=== PATIENT | female | born 1950 | race Caucasian/White ===

== ENCOUNTER → 2017-12-08 | Outpatient (CLI) | payer MEDICARE, OTHER | END | disposition home or self-care (01) | LOC: LAB.REF 19:11 | PROVIDERS: ATTEND Nurse Practitioner Family | DX: I99.8 Other disorder of circulatory system (principal) ==

== ENCOUNTER 2018-11-19 12:48 | Inpatient (IN) | payer MEDICARE, OTHER ==
[2018-11-19] MEDS ORDERED: IPRATROPIUM/ALBUTEROL 3 ML VIAL NEB ONE (13:24)
[2018-11-19] MEDS ORDERED: methylPREDNISolone SODIUM SUC 125 MG/2 ML VIAL IV ONE (13:26)
--- NOTE | 2018-11-19 13:29 | ED.PDOC ---
History of Present Illness - General Chief Complaint: Respiratory Problem Stated Complaint: sob, cough, fever Time Seen by Provider: 11/19/18 12:55 Source: patient Exam Limitations: no limitations - History of Present Illness Initial Comments: 68 yo F with COPD, uses CPAP at night, and chronic atrial fibrillation with a pacemaker who presents with dyspnea for three days. She has had an increasingly productive cough of brown/green sputum. She is unsure if she has had a fever at home. Her has had a recent URI. No other complaints. Denies chest pain. Timing/Duration: other - 3 days Severity: moderate Improving Factors: rest Worsening Factors: movement Associated Symptoms: other - as in HPI Allergies/Adverse Reactions: Allergies Codeine Allergy (Verified 11/19/18 13:21) Other Review of Systems - Review of Systems Constitutional: States: no symptoms reported EENTM: States: no symptoms reported Respiratory: States: see HPI Cardiology: States: see HPI Gastrointestinal/Abdominal: States: no symptoms reported Genitourinary: States: no symptoms reported Musculoskeletal: States: no symptoms reported Skin: States: no symptoms reported Neurological: States: no symptoms reported Endocrine: States: no symptoms reported Hematologic/Lymphatic: States: no symptoms reported Past Medical History (General) - Patient Medical History Hx of COPD: Yes Hx Cardiac Disorders: Yes Hx Pacemaker: Yes Surgical History: cholecystectomy, other - Vaccination History Hx Influenza Vaccination: No Hx Pneumococcal Vaccination: No - Social History Hx Tobacco Use: No Hx Alcohol Use: No Hx Substance Use: No Hx Substance Use Treatment: No Hx Depression: No Family Medical History - Family History Mother Family History: Unknown Physical Exam - Physical Exam General Appearance: Alert Eye Exam: bilateral normal Ears, Nose, Throat: normal ENT inspection Neck: non-tender, full range of motion, supple Respiratory: other - scattered inspiratory and expiratory wheezes in all lung mathew. No rales nor rhonchi. 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, no motor/sensory deficits, alert, normal mood/affect, oriented x 3 Skin Exam: normal color Lymphatic: no adenopathy Progress - Progress Progress: 11/19/18 17:11 Laboratory Tests 11/19/18 11/19/18 11/19/18 13:34 13:55 13:55 WBC 7.4 RBC 3.56 L Hgb 11.1 L Hct 34.1 L MCV 96.0 MCH 31.1 H MCHC 32.5 L RDW 13.6 Plt Count 179 MPV 9.0 Absolute Neuts (auto) 6.10 Absolute Lymphs (auto) 0.50 L Absolute Monos (auto) 0.70 Absolute Eos (auto) 0.10 Absolute Basos (auto) 0.00 Neutrophils % 81.6 H Lymphocytes % 6.8 L Monocytes % 9.8 H Eosinophils % 1.4 Basophils % 0.4 PT INR PTT (SP) D-Dimer, Quantitative Sodium 138 Potassium 4.3 Chloride 104 Carbon Dioxide 26 Anion Gap 12.3 BUN 31 H Creatinine 1.34 H BUN/Creatinine Ratio 23.1 H Random Glucose 99 Serum Osmolality 282.3 Calcium 9.2 Total Bilirubin 0.9 AST 26 ALT 12 Alkaline Phosphatase 98 Creatine Kinase CK-MB (CK-2) CK-MB (CK-2) % Troponin I B-Natriuretic Peptide Serum Total Protein 7.4 Albumin 3.5 Globulin 3.9 H Albumin/Globulin Ratio 0.9 L Group A Strep Rapid Negative 11/19/18 11/19/18 11/19/18 13:55 13:55 13:55 WBC RBC Hgb Hct MCV MCH MCHC RDW Plt Count MPV Absolute Neuts (auto) Absolute Lymphs (auto) Absolute Monos (auto) Absolute Eos (auto) Absolute Basos (auto) Neutrophils % Lymphocytes % Monocytes % Eosinophils % Basophils % PT 17.7 H INR 1.78 H PTT (SP) 43.5 H D-Dimer, Quantitative 0.25 Sodium Potassium Chloride Carbon Dioxide Anion Gap BUN Creatinine BUN/Creatinine Ratio Random Glucose Serum Osmolality Calcium Total Bilirubin AST ALT Alkaline Phosphatase Creatine Kinase 196 H CK-MB (CK-2) 3.0 CK-MB (CK-2) % Not Reportable Troponin I < 0.02 B-Natriuretic Peptide 517.0 H* Serum Total Protein Albumin Globulin Albumin/Globulin Ratio Group A Strep Rapid BNP 517. Patient was given Solumedrol 125 mg IV x one, Lasix 40 mg IV x one, and duonebs x one. She said that she felt like she was breathing better. Her EKG showed a rate of 94 but otherwise was not useful because of her pacemaker. Negative troponins. She was admitted for observation for CHF and COPD exac. 11/19/18 17:13 Departure - Departure Clinical Impression: Congestive heart failure, COPD (chronic obstructive pulmonary disease) Disposition: Admit Patient Condition: Fair Departure Forms: ED Discharge - Pt. Copy, Patient Portal Self Enrollment Diet: other - as per hospitalist Activity: increase activity as tolerated Referrals: Clayton Walter MD [Primary Care Provider] - 1-2 Weeks
--- NOTE | 2018-11-19 13:59 | RAD ---
EXAM DESCRIPTION: Chest,1 View CLINICAL HISTORY: dyspnea COMPARISON: None. IMPRESSION: Single AP portable upright view of the chest shows enlargement of the cardiac silhouette without pulmonary vascular congestion. Dual-lead left subclavian transvenous cardiac pacemaker is seen with 2 ventricular type leads. Lungs are hypoaerated without acute infiltrate or consolidation. No pleural effusion or pneumothorax. Electronically signed by: Shahzad Palomino MD 11/19/2018 1:58 PM GROUP [employer] MANAGER
[2018-11-19] MEDS ORDERED: FUROSEMIDE INJ 40 MG/4 ML VIAL IV ONE (14:33)
[2018-11-19] MEDS ORDERED: NITROGLYCERIN 2% 1 GM UD TOP ONE (14:33)
[2018-11-19] MEDS ORDERED: ALPRAZolam 0.5 MG TAB ONE (16:43)
[2018-11-19] MEDS ORDERED: AZTREONAM 1 GM VIAL ONE (16:52)
--- NOTE | 2018-11-19 17:51 | HP ---
SUPERVISING PHYSICIAN: Krystal Reed MD CHIEF COMPLAINT: Shortness of breath, cough, fever. HISTORY OF PRESENT ILLNESS: Ms. Lakhani is a 68-year-old, female patient with a history of chronic obstructive pulmonary disease and uses CPAP at night with chronic atrial fibrillation with pacemaker. She presented today to the Emergency Room complaining of dyspnea that had been worsening over the last three days with increasing, productive, purulent cough. Her had noted that he had similar symptoms in the last several days, but Ms. Lakhani's symptoms had worsened to where she was severely short of breath and presented to the Emergency Department. She denied any chest pains and was unsure if she had any fevers at home. Vital signs at the time of admission to the Emergency Room showed that she was febrile with a temperature of 100.7, pulse 90, blood pressure 161/97, saturation 96% on room air. She had been seen in the [facility] emergency clinic today and was actually sent to the Emergency Room for further evaluation due to the fact that she had shown some desaturations on room air. Laboratory studies showed white count 7,400 with a mild left shift, hemoglobin 11.1, hematocrit 34.1. She is on chronic Coumadin therapy, but has been without any Coumadin for the last three days and today her INR was 1.78 with D-dimer 0.25. Chemistries showed normal electrolytes, BUN elevated at 31, creatinine 1.34, BNP showed elevation to 517, but troponin was less than 0.02. Liver function tests were all within normal limits. She had a rapid strep screen that was negative as well as flu A and B by PCR that were both negative. Chest x-ray in the Emergency Room, singe-view portable chest, per radiologic interpretation showed lungs hyper-aerated without any acute infiltrates or consolidations, no pleural effusion or pneumothorax noted. The patient was showing some desaturations again on room air and given that she was having obvious exacerbation of chronic obstructive pulmonary disease with concerns for developing community acquired pneumonia, the Emergency Room physician, Dr. Krishnan, requested the patient be admitted for further treatment and evaluation. The patient is admitted in stable condition. PAST MEDICAL HISTORY: 1. Hypertension. 2. Pulmonary hypertension, followed by Dr. Rodriguez. 3. Chronic atrial fibrillation with pacemaker implantation on chronic Coumadin therapy, but off Coumadin for the last three days due to noncompliance with treatment. 4. History of tricuspid regurgitation. 5. Chronic dyspnea, but no echocardiogram available at time of admission. 6. History of venous insufficiency to bilateral lower extremities with stasis ulcers. PAST SURGICAL HISTORY: 1. Cholecystectomy. 2. Compression fractures of C1-C2, C2-C3, C3-C4 after she fell in 2016 requiring surgical stabilization. 3. Bilateral knee replacements. 4. Gastric bypass. 5. Hernia repair. 6. Appendectomy. 7. Status post elbow fracture with open reduction and internal fixation. 8. section x1. HOME MEDICATIONS: 1. Losartan 100 mg daily. 2. Tylenol 1000 mg t.i.d. 3. Benadryl 50 mg at bedtime. 4. Zyrtec 10 mg daily. 5. Carvedilol 25 mg b.i.d. 6. Biotin 1 tablet daily. 7. Trazodone 50 mg at bedtime. 8. Lasix 40 mg at noon. 9. Lasix 80 mg at 7 o'clock. 10. Spironolactone 25 mg daily. 11. Duloxetine 60 mg daily. 12. Tramadol 100 mg at bedtime. 13. Warfarin 5 mg at bedtime. 14. Warfarin 7.5 mg at bedtime on Tuesdays and . 15. Protonix 40 mg daily. 16. Breo Ellipta 200/25 mcg 1 inhaled daily. ALLERGIES: CODEINE. FAMILY HISTORY: Father at age 51 with cardiovascular disease. Mother at age 83 with history of heart failure. She has three siblings, all alive and all have history of hypertension, atrial fibrillation, strokes, renal problems and one brother had brain aneurysm and coronary artery bypass graft. She gross two children. One daughter has atrial fibrillation. SOCIAL HISTORY: The patient recently moved back to [place], [place]. She is . She is a retired schoolteacher. She has never smoked and rarely drinks alcohol. REVIEW OF SYSTEMS: CONSTITUTIONAL: Denies any unintentional weight loss, but positive for general malaise, subjective fevers. HEENT: Negative for earaches, sore throat. Positive for nasal congestion RESPIRATORY: As noted in history of present illness, positive for worsening shortness of breath, exertional dyspnea and productive cough. CARDIOVASCULAR: Positive for exertional dyspnea. Negative for chest pain or syncopal episodes. GASTROINTESTINAL: Negative for nausea, vomiting, diarrhea or constipation. GENITOURINARY: Denies dysuria, hematuria, polyuria or other urinary symptoms. MUSCULOSKELETAL: Negative for general arthralgias. NEUROLOGIC: Negative for seizures, ataxia, syncopal episodes, vision changes, headaches. HEMATOLOGICAL: Denies easy bruising, unexplained bleeding. She is on chronic Coumadin therapy with warfarin. PHYSICAL EXAMINATION: VITAL SIGNS: Temperature 100.7. Pulse 90. Blood pressure 161/97. Respirations 20. Saturation 96% on room air. Admission weight 107.3 kg. GENERAL: The patient appears frail, tired, but in no apparent acute distress. She is alert. HEENT: Tympanic membranes clear bilaterally. Oropharynx is pink, moist without any lesions. NECK: Supple, nontender with full range of motion. No jugular venous distention noted. RESPIRATORY: Lung sounds notable for some mild inspiration and expiratory wheezing and some coarseness with rhonchi heard throughout all lung field, more so on the right than the left. CARDIOVASCULAR: Slightly irregular rate and rhythm without any appreciable murmurs, gallops, or rubs. ABDOMEN: Soft, nontender. Positive bowel sounds. EXTREMITIES: There is no cyanosis, clubbing or edema. NEUROLOGIC: Cranial nerves II-XII are grossly intact. Facial features are symmetrical. Extraocular movements are within normal limits. There is no nystagmus noted. SKIN: [place], warm and dry without any lesions or rashes. LYMPHATIC: Without any obvious lymphadenopathies. LABORATORY: CBC showed white count 7,400, hemoglobin 11.1, hematocrit 34.1, platelet count 179,000. Differential with a left shift. Coagulation studies show subtherapeutic INR of 1.78 with PT 17.7, PT-T 43.5, D-dimer 0.25. Chemistries showed normal electrolytes with BUN 31, creatinine 1.34, glucose 99. Liver function tests within normal limits. CK slightly elevated at 196, troponin less than 0.02 with BNP 517. Rapid strep screen was negative. MICROBIOLOGY: Blood cultures pending. Sputum culture pending. Group A strep culture pending. Influenza A and B negative by PCR. RADIOLOGY: Chest x-ray in the Emergency Department per radiologic interpretation of single-view chest showed lungs hyper-aerated without any acute infiltrate or consolidations. ASSESSMENT: 1. Acute exacerbation of chronic obstructive pulmonary disease with developing pneumonia, likely right upper lobe. 2. Elevated BNP without any formal diagnosis of congestive heart failure with the patient on both spironolactone and Lasix with no echocardiogram available for review at time of admission with some exacerbation as demonstrated by exertional dyspnea complicated by history of pulmonary hypertension. 3. History of hypertension. 4. History of pulmonary hypertension. 5. Chronic atrial fibrillation with current controlled ventricular rate, showing a paced rhythm, on chronic Coumadin therapy with current subtherapeutic Coumadin level secondary to poor medical compliance. 6. History of tricuspid regurgitation. 7. History of venous insufficiency with past venous stasis ulcers. PLAN: The patient is going to be admitted to the hospital for further treatment and evaluation of developing pneumonia and chronic obstructive pulmonary disease exacerbation along possible acute congestive heart failure exacerbation. She was given Lasix in the Emergency Room. We will continue Lasix tomorrow depending on she clinically responds tonight. She was given a dose of Solu- Medrol in the Emergency Room, however, at this point she is not showing any significant wheezing and I will hold off on additional dosing. She has no significant history of restrictive airway disease and is not a previous smoker. I did start her on antibiotics including Rocephin and azithromycin. She will be on DVT prophylaxis. As she is showing a subtherapeutic INR level and has been previously on Coumadin, we will restart that at 5 mg tonight and bridge with Lovenox until she becomes at least therapeutic. She will have aggressive pulmonary hygiene and oxygen as needed. We will plan to restart her home medications once those have been updated and verified as appropriate. We will recheck x-ray and labs in the morning. We will anticipate her length of stay to be at least two to three days. Until the patient can transition to outpatient management, we will continue to monitor the patient closely and treat as needed. #[id number] [facility]
[2018-11-19] MEDS ORDERED: ACETAMINOPHEN 325 MG TAB PO PRN (18:15)
[2018-11-19] MEDS ORDERED: ONDANSETRON INJ 4 MG/2 ML VIAL IV PRN (18:15)
[2018-11-19] MEDS ORDERED: AZITHROMYCIN IV 500 MG in SODIUM CHLORIDE 0.9% 250ML 250 ML IVPB SCH (18:30)
[2018-11-19] MEDS ORDERED: cefTRIAXone SODIUM 1 GM VIAL ONE (18:50)
[2018-11-19] MEDS ORDERED: SODIUM CHL 0.9% 50ML MIN-BAG+ 50 ML IVPB ONE (18:50)
[2018-11-19] MEDS: cefTRIAXone SODIUM 1 GM in SODIUM CHL 0.9% 50ML MIN-BAG+ 50 ML IVPB SCH (18:53)
[2018-11-19] MEDS: IV SET AND CAP CHANGE INJ INJ SCH (18:54)
[2018-11-19] MEDS ORDERED: AZITHROMYCIN IV 500 MG VIAL IVPB ONE (19:29)
[2018-11-19] MEDS ORDERED: SODIUM CHLORIDE 0.9% 250ML 250 ML ONE (19:29)
[2018-11-19] MEDS ORDERED: SODIUM CHLORIDE 0.9% 1000ML 1,000 ML ONE (20:40)
[2018-11-19] MEDS: IPRATROPIUM/ALBUTEROL 3 ML VIAL INH SCH (20:55)
[2018-11-19] MEDS ORDERED: WARFARIN SODIUM 7.5 MG PO SCH (21:00)
[2018-11-19] MEDS ORDERED: NON-FORMULARY MEDICATION 1 EA MIS (Diphenhydramine Hcl [Benadryl] 50 MG) PO SCH (21:00)
[2018-11-19] MEDS ORDERED: CARVEDILOL 12.5 MG TAB ONE (21:09)
[2018-11-19] MEDS ORDERED: WARFARIN SODIUM 2.5 MG TAB ONE (21:10)
[2018-11-19] MEDS ORDERED: WARFARIN SODIUM 5 MG TAB ONE (21:10)
[2018-11-19] MEDS ORDERED: diphenhydrAMINE HCL 25 MG CAP ONE (21:10)
[2018-11-19] MEDS: ENOXAPARIN SODIUM 40 MG/0.4 ML SYG SUBCU SCH (21:13)
[2018-11-19] MEDS: guaiFENesin ER TAB 600 MG TAB PO SCH (21:14)
[2018-11-19] MEDS: NON-FORMULARY MEDICATION 1 EA MIS (Carvedilol [Carvedilol] 25 MG) PO SCH (21:14)
[2018-11-19] MEDS: traMADol HCL 50 MG TAB PO SCH (21:14)
[2018-11-19] MEDS: traZODone HCL 50 MG TAB PO SCH (21:15)
[2018-11-19] MEDS: BENZONATATE PERLES 100 MG CAP PO PRN (22:39)
[2018-11-20] MEDS: FUROSEMIDE 40 MG TAB PO SCH ×2 (06:00→11:50)
--- NOTE | 2018-11-20 06:05 | RAD ---
CHEST 11/20/2018 0533 hours. CLINICAL HISTORY: COPD. COMPARISON: Chest 11/19/2018. TECHNIQUE: AP and lateral Chest. FINDINGS: Heart is mildly enlarged. Mild aortic atherosclerosis. Lungs appear clear. No pneumothorax. No pleural fluid seen. Dual lead pacemaker left chest wall. Moderate thoracic spondylosis. Upper thoracic to two level vertebroplasty completed. IMPRESSION: 1. No acute chest disease. 2. Mild cardiomegaly. Electronically signed by: Yany Gallo DO 11/20/2018 6:04 AM [facility] [[email or web address]]
[2018-11-20] MEDS: ALBUTEROL SULFATE 2.5 MG/3 ML VIAL NEB PRN (06:45)
[2018-11-20] MEDS ORDERED: GLUCAGON INJ 1 MG VIAL SUBCU PRN (08:19)
[2018-11-20] MEDS ORDERED: DEXTROSE 50% 25 GM/50 ML SYG IV PRN (08:19)
[2018-11-20] MEDS: IPRATROPIUM/ALBUTEROL 3 ML VIAL INH SCH (08:30)
[2018-11-20] MEDS ORDERED: methylPREDNISolone SODIUM SUC 125 MG/2 ML VIAL IV SCH (08:30)
[2018-11-20] MEDS ORDERED: DULoxetine HCL 30 MG CAP PO ONE (09:04)
[2018-11-20] MEDS ORDERED: CARVEDILOL 12.5 MG TAB ONE (09:07)
[2018-11-20] MEDS: DULoxetine HCL 30 MG CAP PO SCH (09:39)
[2018-11-20] MEDS: SPIRONOLACTONE 25 MG TAB PO SCH (09:39)
[2018-11-20] MEDS: PANTOPRAZOLE SODIUM TAB 40 MG PO SCH (09:39)
[2018-11-20] MEDS: CARVEDILOL 12.5 MG TAB PO SCH ×2 (09:40→20:57)
[2018-11-20] MEDS: LOSARTAN POTASSIUM 100 MG TAB PO SCH (09:40)
[2018-11-20] MEDS: CETIRIZINE HCL 10 MG TAB PO SCH (09:40)
[2018-11-20] MEDS: guaiFENesin ER TAB 600 MG TAB PO SCH ×2 (09:40→20:58)
[2018-11-20] MEDS: NON-FORMULARY MEDICATION 1 EA MIS (Carvedilol [Carvedilol] 25 MG) PO SCH (09:41)
[2018-11-20] MEDS ORDERED: BENZONATATE PERLES 100 MG CAP PO PRN (10:25)
[2018-11-20] MEDS: INSULIN LISPRO 100 UNITS/ML PEN SUBCU SCH ×3 (11:49→20:59)
[2018-11-20] MEDS: BENZONATATE PERLES 100 MG CAP PO PRN (11:50)
[2018-11-20] MEDS ORDERED: WARFARIN SODIUM 3 MG TAB PO ONE (12:00)
[2018-11-20] MEDS ORDERED: SODIUM CHL 0.9% 50ML MIN-BAG+ 50 ML IVPB ONE (12:08)
[2018-11-20] MEDS ORDERED: cefTRIAXone SODIUM 1 GM VIAL ONE (12:08)
[2018-11-20] MEDS: IPRATROPIUM/ALBUTEROL 3 ML VIAL NEB SCH ×3 (12:40→20:00)
--- NOTE | 2018-11-20 13:01 | PN ---
SUPERVISING PHYSICIAN: Justo Reed MD DATE: 11/20/18 SUBJECTIVE: The patient is sitting up in bed, complains of shortness of breath and muscle tension. She also complains of cough and each time she coughs she feels like her muscles tense up. She said that muscle relaxers have helped her in the past but at this point she has a very stiff neck, almost like she has a "crick" in her neck. She denies constipation, nausea, vomiting or diarrhea or chest pain. OBJECTIVE: VITAL SIGNS: Temperature 97.9, heart rate 92, blood pressure 117/83, respiratory rate 22, 02 saturation is 95% on 2 liters nasal cannula. RESPIRATORY: Expiratory wheezing throughout all lung mathew. She is diminished at the bases, she is mildly tachypneic and she does have to speak in short phrases due to her dyspnea. CARDIAC: Regular rate and rhythm. GI: Abdomen is soft, non-tender, nondistended. Bowel sounds are positive EXTREMITIES: She has a trace of pedal edema but no cyanosis or clubbing. NEUROLOGICAL: She is awake, alert, and oriented x3. LABORATORY: WBC 6.7 with hemoglobin 10.4 and hematocrit of 32.2. She has a left shift on her differential. INR 1.78. Electrolytes are basically within normal limits. Glucose is slightly high at 129. Sputum culture is pending. Chest x-ray shows no acute chest disease, mild cardiomegaly. All other labs and films have been reviewed via the EMR. ASSESSMENT: 1. Acute exacerbation of chronic obstructive pulmonary disease with developing pneumonia, likely right upper lobe. 2. Elevated BNP without any formal diagnosis of congestive heart failure with the patient on both spironolactone and Lasix with no echocardiogram available for review at time of admission with some exacerbation as demonstrated by exertional dyspnea complicated by history of pulmonary hypertension. 3. History of hypertension. 4. History of pulmonary hypertension. 5. Chronic atrial fibrillation with current controlled ventricular rate, showing a paced rhythm, on chronic Coumadin therapy with current subtherapeutic Coumadin level secondary to poor medical compliance. 6. History of tricuspid regurgitation. 7. History of venous insufficiency with past venous stasis ulcers. PLAN: We will continue present supportive care. I will draw routine lab in the morning including a PT/INR and I have given her 6 mg of Coumadin today, I will have to readjust her dosing tomorrow based on her INR. I have also given her 80 mg of Solu-Medrol every 8 hours and will titrate that down tomorrow. I also started a.c. and h.s. blood sugars with sliding scale Humalog insulin. She will continue her p.o. Lasix. At this point, I think mostly her shortness of breath is due to her chronic obstructive pulmonary disease exacerbation so will continue her home dosing of Lasix. I have also ordered some Tessalon Perles for her cough as well as Flexeril for muscle relaxer. We will continue with good pulmonary hygiene. We will continue to monitor closely and follow as needed. Dr. Reed is the collaborating physician available for consultation. #[id number] [facility]
[2018-11-20] MEDS: methylPREDNISolone SODIUM SUC 125 MG/2 ML VIAL IV SCH ×2 (14:02→21:00)
[2018-11-20] MEDS: SODIUM CHLORIDE 0.9% (FLUSH) 10 ML SYG IV PRN ×2 (14:03→17:56)
[2018-11-20] MEDS: cefTRIAXone SODIUM 1 GM in SODIUM CHL 0.9% 50ML MIN-BAG+ 50 ML IVPB SCH (17:56)
[2018-11-20] MEDS: CYCLOBENZAPRINE HCL 10 MG TAB PO PRN (18:03)
[2018-11-20] MEDS ORDERED: SODIUM CHLORIDE 0.9% 250ML 250 ML ONE (19:25)
[2018-11-20] MEDS ORDERED: AZITHROMYCIN IV 500 MG VIAL IVPB ONE (19:27)
[2018-11-20] MEDS: AZITHROMYCIN IV 500 MG in SODIUM CHLORIDE 0.9% 250ML 250 ML IVPB SCH (19:48)
[2018-11-20] MEDS: ENOXAPARIN SODIUM 40 MG/0.4 ML SYG SUBCU SCH (20:58)
[2018-11-20] MEDS: traZODone HCL 50 MG TAB PO SCH (20:59)
[2018-11-20] MEDS: diphenhydrAMINE HCL 25 MG CAP PO SCH (20:59)
[2018-11-20] MEDS: traMADol HCL 50 MG TAB PO SCH (20:59)
[2018-11-20] MEDS ORDERED: WARFARIN SODIUM 5 MG TAB PO SCH (21:00)
[2018-11-21] MEDS: ALBUTEROL SULFATE 2.5 MG/3 ML VIAL NEB PRN (05:35)
[2018-11-21] MEDS: methylPREDNISolone SODIUM SUC 125 MG/2 ML VIAL IV SCH ×3 (05:45→21:00)
[2018-11-21] MEDS: PANTOPRAZOLE SODIUM TAB 40 MG PO SCH (05:46)
[2018-11-21] MEDS: FUROSEMIDE 40 MG TAB PO SCH ×2 (06:11→12:51)
[2018-11-21] MEDS: INSULIN LISPRO 100 UNITS/ML PEN SUBCU SCH ×4 (07:36→20:56)
[2018-11-21] MEDS: IPRATROPIUM/ALBUTEROL 3 ML VIAL NEB SCH ×4 (08:18→20:20)
[2018-11-21] MEDS: SPIRONOLACTONE 25 MG TAB PO SCH (09:20)
[2018-11-21] MEDS: guaiFENesin ER TAB 600 MG TAB PO SCH ×2 (09:20→20:55)
[2018-11-21] MEDS: DULoxetine HCL 30 MG CAP PO SCH (09:20)
[2018-11-21] MEDS: CARVEDILOL 12.5 MG TAB PO SCH ×2 (09:21→20:56)
[2018-11-21] MEDS: CETIRIZINE HCL 10 MG TAB PO SCH (09:21)
[2018-11-21] MEDS: LOSARTAN POTASSIUM 100 MG TAB PO SCH (09:21)
[2018-11-21] MEDS ORDERED: WARFARIN SODIUM 5 MG, WARFARIN SODIUM 2.5 MG PO ONE ×2 (12:00)
[2018-11-21] MEDS ORDERED: WARFARIN SODIUM 2.5 MG TAB ONE (12:48)
[2018-11-21] MEDS ORDERED: WARFARIN SODIUM 5 MG TAB ONE (12:48)
[2018-11-21] MEDS ORDERED: cefTRIAXone SODIUM 1 GM VIAL ONE (17:17)
[2018-11-21] MEDS ORDERED: SODIUM CHL 0.9% 50ML MIN-BAG+ 50 ML IVPB ONE (17:17)
[2018-11-21] MEDS: cefTRIAXone SODIUM 1 GM in SODIUM CHL 0.9% 50ML MIN-BAG+ 50 ML IVPB SCH (17:40)
[2018-11-21] MEDS ORDERED: SODIUM CHLORIDE 0.9% 250ML 250 ML ONE (19:17)
[2018-11-21] MEDS ORDERED: AZITHROMYCIN IV 500 MG VIAL IVPB ONE (19:19)
[2018-11-21] MEDS: AZITHROMYCIN IV 500 MG in SODIUM CHLORIDE 0.9% 250ML 250 ML IVPB SCH (19:32)
--- NOTE | 2018-11-21 20:11 | PN ---
DATE: 11/21/18 SUPERVISING PHYSICIAN: Justo Reed M.D. SUBJECTIVE: The patient is lying in bed. Continues complaints of shortness of breath but seems to have improved since admission. She still is very hoarse and feels very weak, but otherwise no chest pain, nausea, vomiting, diarrhea or constipation. OBJECTIVE: VITAL SIGNS: Temperature 98.9, heart rate 92, blood pressure 132/82, respiratory rate 20 to 22, oxygen saturation is 91% on 2 liters nasal cannula. RESPIRATORY: Scattered rhonchi throughout with expiratory wheezing in the apices. She is diminished at the bases. She is somewhat tachypneic. She has to speak in short phrases due to her dyspnea. CARDIAC: Regular rate and rhythm. GASTROINTESTINAL: Abdomen is soft, nondistended, non-tender. Bowel sounds are positive. NEUROLOGIC: She is awake, alert and oriented times three. LABORATORY: WBCs are 9.9 with hemoglobin 11.4, hematocrit 34.9. There is a left shift on her differential. INR is .87. Blood sugars have run between 132 and 212. Electrolytes are basically within normal limits with the exception of her chloride is slightly low at 99. Sputum culture is still pending. All other labs and films have been reviewed via the EMR. ASSESSMENT: 1. Acute exacerbation of chronic obstructive pulmonary disease with developing pneumonia, likely right upper lobe. 2. Elevated BNP without any formal diagnosis of congestive heart failure with the patient on both spironolactone and Lasix with no echocardiogram available for review at time of admission with some exacerbation as demonstrated by exertional dyspnea complicated by history of pulmonary hypertension. 3. History of hypertension. 4. History of pulmonary hypertension. 5. Chronic atrial fibrillation with current controlled ventricular rate, showing a paced rhythm, on chronic Coumadin therapy with current subtherapeutic Coumadin level secondary to poor medical compliance. 6. History of tricuspid regurgitation. 7. History of venous insufficiency with past venous stasis ulcers. PLAN: We will continue present supportive care. She will again have routine lab in the morning, including a PT and INR. She will receive 7.5 mg of Coumadin today and we will adjust her Coumadin tomorrow. She continues with shortness of breath so I have titrated off her Solu-Medrol very slowly. I have consulted Physical Therapy for strengthening and conditioning tomorrow as well as doing an O2 qualification study as she may need O2 at home. I have continued to encourage good pulmonary hygiene. Will continue to monitor closely and follow as needed. Dr. Reed is the collaborating physician available for consultation. #[id number] [facility]
[2018-11-21] MEDS: ENOXAPARIN SODIUM 40 MG/0.4 ML SYG SUBCU SCH (20:55)
[2018-11-21] MEDS: traMADol HCL 50 MG TAB PO SCH (20:56)
[2018-11-21] MEDS: diphenhydrAMINE HCL 25 MG CAP PO SCH (20:56)
[2018-11-21] MEDS: traZODone HCL 50 MG TAB PO SCH (20:56)
[2018-11-21] MEDS: CYCLOBENZAPRINE HCL 10 MG TAB PO PRN (22:42)
[2018-11-22] MEDS: ALBUTEROL SULFATE 2.5 MG/3 ML VIAL NEB PRN (05:45)
[2018-11-22] MEDS: PANTOPRAZOLE SODIUM TAB 40 MG PO SCH (06:15)
[2018-11-22] MEDS: methylPREDNISolone SODIUM SUC 125 MG/2 ML VIAL IV SCH (06:15)
[2018-11-22] MEDS: FUROSEMIDE 40 MG TAB PO SCH ×2 (06:35→11:46)
[2018-11-22] MEDS: DULoxetine HCL 30 MG CAP PO SCH (07:59)
[2018-11-22] MEDS: guaiFENesin ER TAB 600 MG TAB PO SCH ×2 (07:59→20:43)
[2018-11-22] MEDS: CARVEDILOL 12.5 MG TAB PO SCH ×2 (08:00→20:41)
[2018-11-22] MEDS: SPIRONOLACTONE 25 MG TAB PO SCH (08:00)
[2018-11-22] MEDS: CETIRIZINE HCL 10 MG TAB PO SCH (08:00)
[2018-11-22] MEDS: LOSARTAN POTASSIUM 100 MG TAB PO SCH (08:00)
[2018-11-22] MEDS: INSULIN LISPRO 100 UNITS/ML PEN SUBCU SCH ×4 (08:01→20:53)
[2018-11-22] MEDS: IPRATROPIUM/ALBUTEROL 3 ML VIAL NEB SCH ×4 (08:13→20:09)
[2018-11-22] MEDS ORDERED: WARFARIN SODIUM 2.5 MG TAB ONE (11:37)
[2018-11-22] MEDS ORDERED: WARFARIN SODIUM 5 MG TAB ONE (11:37)
[2018-11-22] MEDS ORDERED: methylPREDNISolone SODIUM SUC 40 MG/ML VIAL ONE (11:39)
[2018-11-22] MEDS: CHLORPHENIRAMINE W/HYDROCODONE 5 ML UD PO PRN (11:48)
[2018-11-22] MEDS ORDERED: WARFARIN SODIUM 7.5 MG PO SCH ×2 (12:00→21:00)
[2018-11-22] MEDS ORDERED: WARFARIN SODIUM 5 MG TAB PO SCH (12:10)
[2018-11-22] MEDS ORDERED: WARFARIN SODIUM 5 MG TAB PO ONE (12:17)
--- NOTE | 2018-11-22 13:11 | PN ---
SUPERVISING PHYSICIAN: Krystal Reed MD DATE: 11/22/18 SUBJECTIVE: The patient is sitting up in the chair. Today is the first day she has walked for any distance without getting extremely short of breath. She said she was very weak, but is much improved since her admission. She had actually been without her oxygen sitting up in her chair and was not short of breath. She said she is very weak and still has mild shortness of breath, but otherwise denies chest pain, nausea, vomiting, diarrhea or constipation. OBJECTIVE: VITAL SIGNS: Temperature 97.9. Heart rate 92. Blood pressure 148/88. Right 20. Oxygen saturation 94% on 1 liter nasal cannula. RESPIRATORY: Diminished at the bases with a few scattered rhonchi, but no wheezing noted. She does get slightly tachypneic. CARDIAC: Regular rate and rhythm. GASTROINTESTINAL: Abdomen is soft, nondistended, nontender. Bowel sounds are positive. NEUROLOGIC: She is awake, alert and oriented times three. LABORATORY: WBCs are 10,000, hemoglobin and hematocrit are stable at 11.7 and 35.3. She continues to have a left shift on differential. Blood sugars have run between 129 and 200. Electrolytes are basically within normal limits with the exception of her chloride is slightly low at 98. INR 2.4. Her throat culture was negative. Sputum culture is still pending. All other labs and films have been reviewed via the EMR. ASSESSMENT: 1. Acute exacerbation of chronic obstructive pulmonary disease with developing pneumonia, likely right upper lobe. 2. Elevated BNP without any formal diagnosis of congestive heart failure with the patient on both spironolactone and Lasix with no echocardiogram available for review at time of admission with some exacerbation as demonstrated by exertional dyspnea complicated by history of pulmonary hypertension. 3. History of hypertension. 4. History of pulmonary hypertension. 5. Chronic atrial fibrillation with current controlled ventricular rate. She has a paced rhythm. She is on chronic Coumadin therapy. Her INR was therapeutic today. 6. History of tricuspid regurgitation. 7. History of venous insufficiency with past venous stasis ulcers. PLAN: We will continue present supportive care. Her ambulation study for home O2 therapy was performed today and she will not need home oxygen, but due to her chronic obstructive pulmonary disease, she may benefit greatly from pulmonary rehab as well as a pulmonary consult. I have tapered down her steroids. I have also given her some Tussionex for cough. I have repeated her PT/INR in the morning and I have resumed her Coumadin dosing like she takes it at home. Hopefully she can be discharged tomorrow. She will continue with physical therapy tonight and tomorrow morning to make sure she is safe to go home. Dr. Walter is her primary care physician and I will try to let him know that she needs pulmonary rehab. I have also discontinued her youth nutritional monitor. We will continue to monitor the patient closely and follow as needed. Dr. Reed is the collaborating physician and available for consultation. #[id number] [facility]
[2018-11-22] MEDS: SODIUM CHLORIDE 0.9% (FLUSH) 10 ML SYG IV PRN (14:08)
[2018-11-22] MEDS: methylPREDNISolone SODIUM SUC 40 MG/ML VIAL IV SCH ×2 (14:08→21:37)
[2018-11-22] MEDS ORDERED: SODIUM CHL 0.9% 50ML MIN-BAG+ 50 ML IVPB ONE (16:28)
[2018-11-22] MEDS ORDERED: cefTRIAXone SODIUM 1 GM VIAL ONE (16:28)
[2018-11-22] MEDS: cefTRIAXone SODIUM 1 GM in SODIUM CHL 0.9% 50ML MIN-BAG+ 50 ML IVPB SCH (17:33)
[2018-11-22] MEDS: IV SET AND CAP CHANGE INJ INJ SCH (18:02)
[2018-11-22] MEDS ORDERED: SODIUM CHLORIDE 0.9% 250ML 250 ML ONE (19:17)
[2018-11-22] MEDS ORDERED: AZITHROMYCIN IV 500 MG VIAL IVPB ONE (19:19)
[2018-11-22] MEDS: AZITHROMYCIN IV 500 MG in SODIUM CHLORIDE 0.9% 250ML 250 ML IVPB SCH (19:24)
[2018-11-22] MEDS: diphenhydrAMINE HCL 25 MG CAP PO SCH (20:41)
[2018-11-22] MEDS: ENOXAPARIN SODIUM 40 MG/0.4 ML SYG SUBCU SCH (20:42)
[2018-11-22] MEDS: traZODone HCL 50 MG TAB PO SCH (20:42)
[2018-11-22] MEDS: traMADol HCL 50 MG TAB PO SCH (20:43)
[2018-11-23] MEDS: CHLORPHENIRAMINE W/HYDROCODONE 5 ML UD PO PRN (00:20)
[2018-11-23] MEDS: methylPREDNISolone SODIUM SUC 40 MG/ML VIAL IV SCH (05:40)
[2018-11-23] MEDS: PANTOPRAZOLE SODIUM TAB 40 MG PO SCH (06:04)
[2018-11-23 06:23] VITALS: O2SAT 94
[2018-11-23] MEDS: FUROSEMIDE 40 MG TAB PO SCH (06:31)
[2018-11-23] MEDS: CARVEDILOL 12.5 MG TAB PO SCH (08:25)
[2018-11-23] MEDS: guaiFENesin ER TAB 600 MG TAB PO SCH (08:25)
[2018-11-23] MEDS: SPIRONOLACTONE 25 MG TAB PO SCH (08:25)
[2018-11-23] MEDS: DULoxetine HCL 30 MG CAP PO SCH (08:25)
[2018-11-23] MEDS: LOSARTAN POTASSIUM 100 MG TAB PO SCH (08:26)
[2018-11-23] MEDS: INSULIN LISPRO 100 UNITS/ML PEN SUBCU SCH (08:34)
[2018-11-23] MEDS: IPRATROPIUM/ALBUTEROL 3 ML VIAL NEB SCH (08:35)
[2018-11-23] MEDS: CETIRIZINE HCL 10 MG TAB PO SCH (08:35)
[2018-11-23] MEDS ORDERED: BREO ELLIPTA INH SCH (09:00)
[2018-11-23 10:00] VITALS: BP 137/84; TEMP 98.1
[2018-11-23] MEDS ORDERED: WARFARIN SODIUM 5 MG TAB PO SCH ×2 (12:00→21:00)
[2018-11-24] MEDS ORDERED: predniSONE 20 MG TAB PO SCH (09:00)
--- NOTE | 2018-11-26 09:53 | DS ---
SUPERVISING PHYSICIAN: Justo Reed MD ADMISSION DIAGNOSIS: 1. Acute exacerbation of chronic obstructive pulmonary disease with developing pneumonia, likely right upper lobe. 2. Elevated BNP without any formal diagnosis of congestive heart failure with the patient on both spironolactone and Lasix with no echocardiogram available for review at time of admission with some exacerbation as demonstrated by exertional dyspnea complicated by history of pulmonary hypertension. 3. History of hypertension. 4. History of pulmonary hypertension. 5. Chronic atrial fibrillation with current controlled ventricular rate, showing a paced rhythm, on chronic Coumadin therapy with current subtherapeutic Coumadin level secondary to poor medical compliance. 6. History of tricuspid regurgitation. 7. History of venous insufficiency with past venous stasis ulcers. DISCHARGE DIAGNOSIS: 1. Acute exacerbation of chronic obstructive pulmonary disease with developing pneumonia, likely right upper lobe. 2. Elevated BNP without any formal diagnosis of congestive heart failure with the patient on both spironolactone and Lasix with no echocardiogram available for review at time of admission with some exacerbation as demonstrated by exertional dyspnea complicated by history of pulmonary hypertension. 3. History of hypertension. 4. History of pulmonary hypertension. 5. Chronic atrial fibrillation with current controlled ventricular rate. She has a paced rhythm. She is on chronic Coumadin therapy. Her INR was therapeutic today. 6. History of tricuspid regurgitation. 7. History of venous insufficiency with past venous stasis ulcers. REASON FOR HOSPITALIZATION: Ms. Lakhani is a 68-year-old, female patient with a history of chronic obstructive pulmonary disease and uses CPAP at night with chronic atrial fibrillation with pacemaker. She presented today to the Emergency Room complaining of dyspnea that had been worsening over the last three days with increasing, productive, purulent cough. Her had noted that he had similar symptoms in the last several days, but Ms. Lakhani's symptoms had worsened to where she was severely short of breath and presented to the Emergency Department. She denied any chest pains and was unsure if she had any fevers at home. Vital signs at the time of admission to the Emergency Room showed that she was febrile with a temperature of 100.7, pulse 90, blood pressure 161/97, saturation 96% on room air. [facility] and was actually sent to the Emergency Room for further evaluation due to the fact that she had shown some desaturations on room air. Laboratory studies showed white count 7,400 with a mild left shift, hemoglobin 11.1, hematocrit 34.1. She is on chronic Coumadin therapy, but has been without any Coumadin for the last three days and today her INR was 1.78 with D-dimer 0.25. Chemistries showed normal electrolytes, BUN elevated at 31, creatinine 1.34, BNP showed elevation to 517, but troponin was less than 0.02. Liver function tests were all within normal limits. She had a rapid strep screen that was negative as well as flu A and B by PCR that were both negative. Chest x-ray in the Emergency Room, singe-view portable chest, per radiologic interpretation showed lungs hyper-aerated without any acute infiltrates or consolidations, no pleural effusion or pneumothorax noted. The patient was showing some desaturations again on room air and given that she was having obvious exacerbation of chronic obstructive pulmonary disease with concerns for developing community acquired pneumonia, the Emergency Room physician, Dr. Krishnan, requested the patient be admitted for further treatment and evaluation. The patient is admitted in stable condition. LABORATORY STUDIES: Showed normal white count both on admission and discharge with discharge white count at 10,000. Hemoglobin and hematocrit were stable at 11.7 and 35.3 respectively at discharge. Differential did show a left shift. Coagulation studies initially showed INR of 1.78 with PT 17.7, PT-T 43.5, D- dimer 0.25. Prior to discharge her INR had become therapeutic at 2.72. Chemistries initially on admission showed normal electrolytes, they stayed within normal limits through her noncrushing. Last labs on 11/22/18 showed normal electrolytes with potassium 4.8, BUN 52, creatinine 1.80. Blood sugars ranged between 129 and 212. Liver functions were all within normal limits. Magnesium was normal at 1.9 at discharge. Urinalysis showed to be within normal limits and a group A strep was negative.. MICROBIOLOGY: Sputum culture showed a few mixed normal respiratory bernadette. Group A beta strep was negative for beta hemo streptococcus. She had an influenza by PCR that was negative for both A and B.. RADIOLOGY: Chest x-ray initially on admission per radiologic interpretation showed the lungs to be hyperaerated without any acute infiltrate or consolidations. No pleural effusions or pneumothorax. Repeat chest x-ray during hospitalization, last one on 11/20/18 and per radiology interpretation of a t-2-view chest showed no acute chest disease or cardiomegaly. HOSPITAL COURSE: Ms. Lakhani was admitted as noted for acute exacerbation of chronic obstructive pulmonary disease with likely pneumonia in the right upper lobe. She was started on aggressive pulmonary hygiene management and steroids. Her Coumadin was non-therapeutic which prior to discharge was able to reach therapeutic levels. She had her steroids tapered to where she was tolerating p.o. dose prior to going home and it was felt she had made clinical response to treatment and well enough to continue with outpatient management. Medications initially on admission for treatment of the pneumonia included azithromycin and Rocephin. PLAN: Ms. Lakhani was discharged on 11/23/2018 with instructions to followup with Dr. Walter in the following week, she has an appointment on 11/27/2018 at 1500. She will benefit from referral to pulmonary rehabilitation and be seen by a audit spec which can be arranged through Dr. Walter's office. She is to resume all medications prior to hospitalization and instructed to return to the hospital should she have any worsening symptoms. DISCHARGE DIET: Usual diet. ACTIVITIES: Increase as tolerated. DISCHARGE PRESCRIPTIONS: 1. Cefdinir 300 mg twice a day, #10. 2. Guaifenesin 1200 mg twice a day for at least 4 days. 3. Medrol Dosepak 4 mg as directed. CONDITION ON DISCHARGE: Stable and improving. DISPOSITION: Patient discharged to care of family. #[id number] MTDD
== END 2018-11-23 12:55 | disposition home or self-care (01) | DRG 190 ==
LOC: ER 12:48 → MS 17:50
PROVIDERS: ADMIT Family Medicine; ATTEND Nurse Practitioner Family
DX: J44.1 Chronic obstructive pulmonary disease with (acute) exacerbation (principal); J18.1 Lobar pneumonia, unspecified organism; I27.20 Pulmonary hypertension, unspecified; I11.0 Hypertensive heart disease with heart failure; I50.9 Heart failure, unspecified; I48.2 Chronic atrial fibrillation; I07.1 Rheumatic tricuspid insufficiency; I87.2 Venous insufficiency (chronic) (peripheral); T45.516A Underdosing of anticoagulants, initial encounter; Y92.009 Unspecified place in unspecified non-institutional (private) residence as the place of occurrence of the external cause; Z91.128 Patient's intentional underdosing of medication regimen for other reason; Z95.0 Presence of cardiac pacemaker; Z79.01 Long term (current) use of anticoagulants; Z96.653 Presence of artificial knee joint, bilateral; Z98.84 Bariatric surgery status; Z88.5 Allergy status to narcotic agent; Z79.899 Other long term (current) drug therapy

== ENCOUNTER 2019-02-20 07:53 | Emergency (ER) | payer MEDICARE, OTHER ==
--- NOTE | 2019-02-20 08:18 | ED.PDOC ---
History of Present Illness - General Chief Complaint: Upper Extremity Injury Stated Complaint: R wrist pain Time Seen by Provider: 02/20/19 08:00 Source: patient Exam Limitations: no limitations - History of Present Illness Initial Comments: Pt tripped while walking to her car this am. She fell to her right and tried to catch herself. Denies head or hip injury. Occurred: just prior to arrival Pain - Upper Extremity: severe: Wrist, right Method of Injury: fell Improving Factors: nothing Worsening Factors: movement Allergies/Adverse Reactions: Allergies Codeine Allergy (Verified 02/20/19 08:19) Other Home Medications: Ambulatory Orders Acetaminophen [Tylenol] 1,000 mg PO TID 11/19/18 Biotin W/ Vitamins C & E [Hair Skin & Nails ... 1250-7.5-7.5 Mcg-mg-Unt] 1 chw PO DAILY 11/19/18 Breo Ellipta 200-25 Mcg/INH INH DAILY 11/19/18 Carvedilol 25 mg PO BID 11/19/18 Cetirizine HCl [Zyrtec] 10 mg PO DAILY 11/19/18 DiphenhydrAMINE HCL [Benadryl] 50 mg PO BEDTIME 11/19/18 Duloxetine HCl 60 mg PO DAILY 11/19/18 Furosemide 40 mg PO DAILY@1200 11/19/18 Furosemide Tab [Lasix Tab] 80 mg PO DAILY@0700 11/19/18 Losartan Potassium 100 mg PO DAILY 11/19/18 Pantoprazole Tablet [Protonix] 40 mg PO DAILY 11/19/18 Spironolactone 25 mg PO DAILY 11/19/18 Tramadol HCl [Ultram] 100 mg PO BEDTIME 11/19/18 Trazodone HCl [Trazodone Hydrochloride] 50 mg PO BEDTIME 11/19/18 Warfarin Sodium 5 mg PO SUTUWEFRSA@2100 11/20/18 Tramadol HCl 50 mg PO Q4HWA PRN #20 tab 02/20/19 Review of Systems - Review of Systems Constitutional: Denies: diaphoresis, malaise, weakness EENTM: States: no symptoms reported Respiratory: States: no symptoms reported. Denies: short of breath Cardiology: States: no symptoms reported. Denies: chest pain, syncope Gastrointestinal/Abdominal: Denies: abdominal pain, nausea, vomiting Genitourinary: States: no symptoms reported Musculoskeletal: States: joint pain Skin: States: lumps Neurological: Denies: headache, paresthesia, tingling, weakness Endocrine: States: no symptoms reported Hematologic/Lymphatic: States: no symptoms reported Past Medical History (General) - Patient Medical History Hx Seizures: No Hx Stroke: No Hx of COPD: Yes Hx Cardiac Disorders: Yes - Chronic a fib; Venous insuffiency Hx Congestive Heart Failure: Yes Hx Pacemaker: Yes Hx Hypertension: Yes Hx Diabetes: No Hx MRSA: Yes MRSA Source:: Wound Surgical History: appendectomy, cholecystectomy, gastric bypass, pacemaker, other - Vaccination History Hx Influenza Vaccination: Yes Hx Pneumococcal Vaccination: No - Social History Hx Tobacco Use: No Hx Alcohol Use: Yes - Infrequently Hx Substance Use: No Hx Substance Use Treatment: No Hx Depression: No Hx Emotional Abuse: No Family Medical History - Family History Mother Family History: Unknown Living Status: Age at (years of age): 83 Cause of : Heart failure Physical Exam - Physical Exam General Appearance: Alert, Obvious distress Eyes, Ears, Nose, Throat Exam: PERRL/EOMI, normal ENT inspection Neck: non-tender, full range of motion, supple Cardiovascular/Respiratory: regular rate, rhythm, normal peripheral pulses, normal breath sounds, no respiratory distress Abdominal Exam: non-tender Shoulder Exam: normal inspection, non-tender Elbow/Forearm Exam: normal inspection, non-tender Wrist Exam: ecchymosis, limited ROM, swelling Hand Exam: normal inspection, non-tender Neuro/Tendon: normal sensation, responds to pain Mental Status: alert, oriented x 3 Skin Exam: normal color, warm/dry Departure - Departure Clinical Impression: Closed fracture of right wrist Qualifiers: Encounter type: initial encounter Qualified Code(s): S62.101A - Fracture of unspecified carpal bone, right wrist, initial encounter for closed fracture Disposition: Discharge to Home or Self Care Departure Forms: ED Discharge - Pt. Copy, Patient Portal Self Enrollment Instructions: DI for Arm Pain Referrals: Clayton Walter MD [Primary Care Provider] - 1-2 Weeks Ever Sinha MD [Active Staff] - 1-2 Weeks Prescriptions: Tramadol HCl 50 mg PO Q4HWA PRN #20 tab PRN Reason: Moderate To Severe Pain Home Medications: Ambulatory Orders Acetaminophen [Tylenol] 1,000 mg PO TID 11/19/18 Biotin W/ Vitamins C & E [Hair Skin & Nails ... 1250-7.5-7.5 Mcg-mg-Unt] 1 chw PO DAILY 11/19/18 Breo Ellipta 200-25 Mcg/INH INH DAILY 11/19/18 Carvedilol 25 mg PO BID 11/19/18 Cetirizine HCl [Zyrtec] 10 mg PO DAILY 11/19/18 DiphenhydrAMINE HCL [Benadryl] 50 mg PO BEDTIME 11/19/18 Duloxetine HCl 60 mg PO DAILY 11/19/18 Furosemide 40 mg PO DAILY@1200 11/19/18 Furosemide Tab [Lasix Tab] 80 mg PO DAILY@0700 11/19/18 Losartan Potassium 100 mg PO DAILY 11/19/18 Pantoprazole Tablet [Protonix] 40 mg PO DAILY 11/19/18 Spironolactone 25 mg PO DAILY 11/19/18 Tramadol HCl [Ultram] 100 mg PO BEDTIME 11/19/18 Trazodone HCl [Trazodone Hydrochloride] 50 mg PO BEDTIME 11/19/18 Warfarin Sodium 5 mg PO SUTUWEFRSA@2100 11/20/18 Tramadol HCl 50 mg PO Q4HWA PRN #20 tab 02/20/19
[2019-02-20 08:19] VITALS: O2SAT 97
--- NOTE | 2019-02-20 08:37 | RAD ---
EXAM DESCRIPTION: Wrist,Right 3 Views CLINICAL HISTORY: 68 years Female, fall COMPARISON: None available. FINDINGS: The visualized bones appear osteopenic. Comminuted impacted fractures of the distal radius and ulna, with associated soft tissue swelling. IMPRESSION: Comminuted and impacted fractures of the distal radius and ulna with associated soft tissue swelling. Electronically signed by: Kimberly Hansen MD 02/20/2019 8:34 AM CDT
[2019-02-20] MEDS: MORPHINE SULFATE INJ 10 MG/ML VIAL IV ONE (09:00)
[2019-02-20] MEDS: ONDANSETRON INJ 4 MG/2 ML VIAL IV ONE (09:00)
[2019-02-20 10:02] VITALS: BP 153/101; TEMP 96.5
== END 2019-02-20 10:00 | disposition home or self-care (01) ==
LOC: ER 07:53
DX: S52.501A Unspecified fracture of the lower end of right radius, initial encounter for closed fracture (principal); S52.601A Unspecified fracture of lower end of right ulna, initial encounter for closed fracture; J44.9 Chronic obstructive pulmonary disease, unspecified; I48.2 Chronic atrial fibrillation; I50.9 Heart failure, unspecified; I11.0 Hypertensive heart disease with heart failure; Z95.0 Presence of cardiac pacemaker; Z79.01 Long term (current) use of anticoagulants; Z79.899 Other long term (current) drug therapy; Z88.5 Allergy status to narcotic agent; W01.0XXA Fall on same level from slipping, tripping and stumbling without subsequent striking against object, initial encounter; Y93.01 Activity, walking, marching and hiking; Y92.9 Unspecified place or not applicable
CPT/HCPCS: 36415; 73110; 80053; 85025; 85610; 85730; J2270; J2405

== ENCOUNTER → 2019-02-25 | Outpatient (CLI) | payer MEDICARE, OTHER ==
--- NOTE | 2019-02-25 08:47 | RAD ---
EXAM DESCRIPTION: Forearm,Right CLINICAL HISTORY: 68 years Female, M25.531, M79.631 COMPARISON: Previous study x-ray images of the right wrist February 20, 2019 FINDINGS: Impacted fracture of the distal right radius with nondisplaced fracture of the distal ulna. Alignment appears stable compared to previous study. Advanced degenerative changes of the lateral carpus. IMPRESSION: Fractured distal radius and ulna. Electronically signed by: Jakob Costello MD 02/25/2019 8:44 AM CDT
--- NOTE | 2019-02-25 08:49 | RAD ---
EXAM DESCRIPTION: Wrist,Right 3 Views CLINICAL HISTORY: 68 years, Female, M25.531, M79.631 COMPARISON: Previous x-ray right wrist February 20, 2019 FINDINGS: Right wrist 3 x-ray views shows transversely oriented fractures of the right distal radius and ulna with alignment unchanged compared to previous study. No extension of the fracture line into the radiocarpal joint. Advanced degenerative changes of the lateral carpus especially first carpometacarpal joint. IMPRESSION: Fractured distal right radius and ulna. Advanced degenerative changes of the lateral carpus. Electronically signed by: Jakob Costello MD 02/25/2019 8:46 AM CDT
== END ==
LOC: RAD 08:58
PROVIDERS: ATTEND Orthopaedic Surgery
DX: S52.591D Other fractures of lower end of right radius, subsequent encounter for closed fracture with routine healing (principal); S52.691D Other fracture of lower end of right ulna, subsequent encounter for closed fracture with routine healing

== ENCOUNTER → 2019-03-07 | Outpatient (CLI) | payer MEDICARE, OTHER ==
--- NOTE | 2019-03-08 07:48 | RAD ---
EXAM: Wrist,Right 3 Views CLINICAL HISTORY: S52.501D COMPARISON STUDY: February 25, 2019 TECHNICAL: AP, lateral and oblique x-rays of the right wrist FINDINGS: The fractures involving the right distal radius and ulna are again identified. Fracture lines remain lucent. There is no change in the alignment. There are severe degenerative changes of the lateral carpal row. An overlying cast diminishes detailed evaluation. IMPRESSION: Healing right distal radial and ulnar fractures. Electronically signed by: Michelet Snyder MD 03/08/2019 7:45 AM CDT
== END ==
LOC: RAD 09:24
PROVIDERS: ATTEND Orthopaedic Surgery
DX: S52.501D Unspecified fracture of the lower end of right radius, subsequent encounter for closed fracture with routine healing (principal); S52.201D Unspecified fracture of shaft of right ulna, subsequent encounter for closed fracture with routine healing

== ENCOUNTER → 2019-03-18 | Outpatient (CLI) | payer MEDICARE, OTHER ==
--- NOTE | 2019-03-18 11:57 | RAD ---
EXAM DESCRIPTION: Wrist,Right 3 Views CLINICAL HISTORY: 68 years Female, S52.91XA COMPARISON: March 07, 2019 FINDINGS: Artifact from superimposed splint material which appears bony detail. With this in mind, again seen is a partially united Distal right radial fracture with moderate posterior displacement and mild posterior angulation, unchanged from the prior exam. The radiocarpal joint is anatomically aligned. Old nondisplaced distal ulnar fracture, also unchanged. Degenerative changes at the triscaphe and first CMC joints. No new fracture or malalignment. IMPRESSION: Distal right radial and ulnar fractures as detailed above, unchanged from March 07, 2019. No new abnormality. Electronically signed by: Ángel Da Silva MD 03/18/2019 11:55 AM CDT
== END ==
LOC: RAD 08:07
PROVIDERS: ATTEND Orthopaedic Surgery
DX: S52.591D Other fractures of lower end of right radius, subsequent encounter for closed fracture with routine healing (principal); S52.691D Other fracture of lower end of right ulna, subsequent encounter for closed fracture with routine healing

== ENCOUNTER → 2019-05-09 | Outpatient (CLI) | payer MEDICARE, OTHER ==
--- NOTE | 2019-05-10 17:21 | RAD ---
EXAM DESCRIPTION: Wrist,Right 3 Views CLINICAL HISTORY: S52.91XD COMPARISON: 09 Apr 2019 TECHNIQUE: 3 views right FINDINGS: Fracturing of the distal metaphyseal regions of the radius and ulna are observed. Callus formation is observed at the fracture sites. Its more complete than seen on the previous exam. Alignment remains unchanged when compared to the prior exam. Degenerative changes are observed in the wrist most pronounced along the radial side. No new injury is seen. IMPRESSION: Healing fractures of the distal radius and ulna. Electronically signed by: Ra Faulkner MD 05/10/2019 5:19 PM CDT
== END ==
LOC: RAD 09:49
PROVIDERS: ATTEND Orthopaedic Surgery
DX: S52.591D Other fractures of lower end of right radius, subsequent encounter for closed fracture with routine healing (principal); S52.691D Other fracture of lower end of right ulna, subsequent encounter for closed fracture with routine healing

== ENCOUNTER 2019-08-17 18:45 | Emergency (ER) | payer MEDICARE, OTHER ==
--- NOTE | 2019-08-17 19:01 | ED.PDOC ---
History of Present Illness - General Chief Complaint: Blood Pressure Problem Time Seen by Provider: 08/17/19 18:49 Source: patient, RN notes reviewed, Vital Signs reviewed, RN/MD - History of Present Illness Initial Comments: Pt presents for evaluation of HTN. She states that she has not felt well today. She has had a pain in her head and neck like something is squeezing tightly. She denies any chest pain, SOB, weakness, abdominal pain, nausea, vomiting, vision changes, double vision, or difficulty with speech. She has chronic gait issues, but nothing worse than baseline. She states that she has taken her medications today. She denies any recent adjustment to medication doses. She denies any other complaints. Allergies/Adverse Reactions: Allergies Codeine Allergy (Verified 02/20/19 08:19) Other Home Medications: Ambulatory Orders Breo Ellipta 200-25 Mcg/INH 25 mcg INH DAILY 11/19/18 RX: Acetaminophen [Tylenol] 1,000 mg PO TID 11/19/18 RX: Biotin W/ Vitamins C & E [Hair Skin & Nails ... 1250-7.5-7.5 Mcg-mg-Unt] 1 chw PO DAILY 11/19/18 RX: Carvedilol 25 mg PO BID 11/19/18 RX: Cetirizine HCl [Zyrtec] 10 mg PO DAILY 11/19/18 RX: DiphenhydrAMINE HCL [Benadryl] 50 mg PO BEDTIME 11/19/18 RX: Duloxetine HCl 60 mg PO DAILY 11/19/18 RX: Furosemide 40 mg PO DAILY@1200 11/19/18 RX: Furosemide Tab [Lasix Tab] 80 mg PO DAILY@0700 11/19/18 RX: Losartan Potassium 100 mg PO DAILY 11/19/18 RX: Pantoprazole Tablet [Protonix] 40 mg PO DAILY 11/19/18 RX: Spironolactone 25 mg PO DAILY 11/19/18 RX: Tramadol HCl [Ultram] 100 mg PO BEDTIME 11/19/18 RX: Trazodone HCl [Trazodone Hydrochloride] 50 mg PO BEDTIME 11/19/18 RX: Warfarin Sodium 5 mg PO SUTUWEFRSA@2100 11/20/18 RX: Tramadol HCl 50 mg PO Q4HWA PRN #20 tab 04/03/19 Review of Systems - Review of Systems Constitutional: States: no symptoms reported EENTM: States: no symptoms reported. Denies: blurred vision, double vision Respiratory: States: no symptoms reported. Denies: short of breath Cardiology: States: no symptoms reported. Denies: chest pain Gastrointestinal/Abdominal: Denies: nausea, vomiting Musculoskeletal: Denies: back pain Neurological: States: headache. Denies: numbness, paresthesia, tingling, weakness Past Medical History (General) - Patient Medical History Hx Seizures: No Hx Stroke: No Hx of COPD: Yes Hx Cardiac Disorders: Yes - Chronic a fib; Venous insuffiency Hx Congestive Heart Failure: Yes Hx Pacemaker: Yes Hx Hypertension: Yes Hx Diabetes: No Hx MRSA: Yes MRSA Source:: Wound - Vaccination History Hx Influenza Vaccination: Yes Hx Pneumococcal Vaccination: No - Social History Hx Tobacco Use: No Hx Alcohol Use: Yes - Infrequently Hx Substance Use: No Hx Substance Use Treatment: No Hx Depression: No Hx Emotional Abuse: No Family Medical History - Family History Mother Family History: Unknown Living Status: Age at (years of age): 83 Cause of : Heart failure Physical Exam - Physical Exam General Appearance: Alert, Comfortable, No apparent distress Eye Exam: bilateral normal Ears, Nose, Throat: hearing grossly normal Neck: full range of motion, supple, normal inspection Respiratory: lungs clear, normal breath sounds, no respiratory distress, no accessory muscle use Cardiovascular/Chest: regular rate, rhythm, no edema, no gallop, no JVD Peripheral Pulses: radial,right: 2+, radial,left: 2+ Gastrointestinal/Abdominal: non tender, soft Neurologic: sketcher II-XII nml as tested, no motor/sensory deficits, alert, normal mood/affect, oriented x 3, other - No dysmetria with finger to nose. No pronator drift. 5/5 strength in extremities. Sensation intact in extremities. Skin Exam: normal color Progress - Progress Progress: DDx: ICH, Hypertensive Urgency, Hypertensive emergency, ACS, Acute kidney injury, transaminitis 08/17/19 21:16 Patient presented for evaluation of HTN. She was endorsing a headache however had no focal neurologic deficits on examination. EKG was not significant for ischemic changes. Troponin was found to be WNL. CT head was obtained and not- significant for intracranial hemorrhage. She had no LFT derangement on CMP. CBC was not significant for anemia. CMP was significant for slightly elevated creatinine, however patient notes that she is chronically elevated secondary to CKD. Patient was otherwise asymptomatic. Her symptoms are likely secondary to HTN. Patient was advised to call PCP for appointment and medication adjustment. She was stable for discharge home and outpatient follow-up. - Results/Orders Results/Orders: 08/17/19 19:15 EKG STAT Laboratory Results - last 24 hr 08/17/19 08/17/19 08/17/19 19:12 19:13 19:43 WBC 6.7 RBC 3.70 L Hgb 10.8 L Hct 34.2 L MCV 92.4 MCH 29.3 MCHC 31.7 L RDW 14.1 Plt Count 247 MPV 9.5 Absolute Neuts (auto) 4.80 Absolute Lymphs (auto) 1.00 Absolute Monos (auto) 0.60 Absolute Eos (auto) 0.20 Absolute Basos (auto) 0.10 Neutrophils % 71.2 Lymphocytes % 15.4 L Monocytes % 9.4 H Eosinophils % 3.0 Basophils % 1.0 Sodium 144 Potassium 3.9 Chloride 104 Carbon Dioxide 28 Anion Gap 15.9 BUN 30 H Creatinine 1.33 H BUN/Creatinine Ratio 22.6 H Random Glucose 111 H Serum Osmolality 293.7 Calcium 9.3 Total Bilirubin 0.8 AST 40 ALT 23 Alkaline Phosphatase 102 Troponin I 0.02 Serum Total Protein 7.3 Albumin 3.9 Globulin 3.4 Albumin/Globulin Ratio 1.1 Urine Color Urine Appearance Urine pH Ur Specific [place] Urine Protein Urine Glucose (UA) Urine Ketones Urine Blood Urine Nitrite Urine Bilirubin Urine Urobilinogen Ur Leukocyte Esterase Urine RBC Urine WBC Ur Epithelial Cells Urine Bacteria 08/17/19 19:48 WBC RBC Hgb Hct MCV MCH MCHC RDW Plt Count MPV Absolute Neuts (auto) Absolute Lymphs (auto) Absolute Monos (auto) Absolute Eos (auto) Absolute Basos (auto) Neutrophils % Lymphocytes % Monocytes % Eosinophils % Basophils % Sodium Potassium Chloride Carbon Dioxide Anion Gap BUN Creatinine BUN/Creatinine Ratio Random Glucose Serum Osmolality Calcium Total Bilirubin AST ALT Alkaline Phosphatase Troponin I Serum Total Protein Albumin Globulin Albumin/Globulin Ratio Urine Color Yellow Urine Appearance Clear Urine pH 6.0 Ur Specific [place] 1.015 Urine Protein Trace Urine Glucose (UA) Negative Urine Ketones Negative Urine Blood Negative Urine Nitrite Negative Urine Bilirubin Negative Urine Urobilinogen 0.2 Ur Leukocyte Esterase Negative Urine RBC 0 Urine WBC 0-1 Ur Epithelial Cells 0-[address] Head: FINDINGS: There is no midline shift, mass effect, or extraaxial fluid collection. There is no evidence of acute intracranial hemorrhage, mass lesion, or cerebral edema. Moderate diffuse cerebral atrophy is noted. Bone window images reveal no evidence of a skull fracture. IMPRESSION: No evidence of an acute intracranial process. Electronically signed by: Dawson Pineda MD 08/17/2019 7:42 PM CDT - EKG/XRAY/CT Comments: Ventricular paced rhythm without ST changes Departure - Departure Clinical Impression: Hypertension Qualifiers: Hypertension type: unspecified Qualified Code(s): I10 - Essential (primary) hypertension Headache Qualifiers: Headache chronicity pattern: unspecified pattern Intractability: not intractable CKD (chronic kidney disease) Qualifiers: Chronic kidney disease stage: unspecified stage Qualified Code(s): N18.9 - Chronic kidney disease, unspecified Time of Disposition: 20:38 Disposition: Discharge to Home or Self Care Condition: Good Departure Forms: ED Discharge - Pt. Copy, Patient Portal Self Enrollment Instructions: DI for High Blood Pressure Diet: low salt diet Activity: increase activity as tolerated Referrals: Clayton Walter MD [Primary Care Provider] - 1-2 Days Home Medications: Ambulatory Orders Breo Ellipta 200-25 Mcg/INH 25 mcg INH DAILY 11/19/18 RX: Acetaminophen [Tylenol] 1,000 mg PO TID 11/19/18 RX: Biotin W/ Vitamins C & E [Hair Skin & Nails ... 1250-7.5-7.5 Mcg-mg-Unt] 1 chw PO DAILY 11/19/18 RX: Carvedilol 25 mg PO BID 11/19/18 RX: Cetirizine HCl [Zyrtec] 10 mg PO DAILY 11/19/18 RX: DiphenhydrAMINE HCL [Benadryl] 50 mg PO BEDTIME 11/19/18 RX: Duloxetine HCl 60 mg PO DAILY 11/19/18 RX: Furosemide 40 mg PO DAILY@1200 11/19/18 RX: Furosemide Tab [Lasix Tab] 80 mg PO DAILY@0700 11/19/18 RX: Losartan Potassium 100 mg PO DAILY 11/19/18 RX: Pantoprazole Tablet [Protonix] 40 mg PO DAILY 11/19/18 RX: Spironolactone 25 mg PO DAILY 11/19/18 RX: Tramadol HCl [Ultram] 100 mg PO BEDTIME 11/19/18 RX: Trazodone HCl [Trazodone Hydrochloride] 50 mg PO BEDTIME 11/19/18 RX: Warfarin Sodium 5 mg PO JEAN PIERRE@2100 11/20/18 RX: Tramadol HCl 50 mg PO Q4HWA PRN #20 tab 02/20/19 Comments: Casa Matthews #[id number]
--- NOTE | 2019-08-17 19:43 | CT ---
EXAM: CT head CLINICAL INDICATION: Hypertension, headache COMPARISON: There is no previous study for comparison. TECHNIQUE: CT scan was done using contiguous axial 5 mm sections through the brain. This exam was performed according to our departmental dose-optimization program, which includes automated exposure control, adjustment of the mA and/or kV according to patient size and/or use of iterative reconstruction technique. FINDINGS: There is no midline shift, mass effect, or extraaxial fluid collection. There is no evidence of acute intracranial hemorrhage, mass lesion, or cerebral edema. Moderate diffuse cerebral atrophy is noted. Bone window images reveal no evidence of a skull fracture. IMPRESSION: No evidence of an acute intracranial process. Electronically signed by: Dawson Pineda MD 08/17/2019 7:42 PM CDT
[2019-08-17 20:58] VITALS: BP 181/109; TEMP 98.1; O2SAT 98
== END 2019-08-17 21:00 | disposition home or self-care (01) ==
LOC: ER 18:45
DX: I13.0 Hypertensive heart and chronic kidney disease with heart failure and stage 1 through stage 4 chronic kidney disease, or unspecified chronic kidney disease (principal); R51 Headache; N18.9 Chronic kidney disease, unspecified; J44.9 Chronic obstructive pulmonary disease, unspecified; I48.2 Chronic atrial fibrillation; I50.9 Heart failure, unspecified; G31.9 Degenerative disease of nervous system, unspecified; Z95.0 Presence of cardiac pacemaker; Z79.899 Other long term (current) drug therapy; Z88.5 Allergy status to narcotic agent

== ENCOUNTER → 2019-11-07 | Outpatient (CLI) | payer MEDICARE, OTHER ==
--- NOTE | 2019-11-07 14:54 | RAD ---
EXAM DESCRIPTION: Shoulder,Left 2 or More Views CLINICAL HISTORY: 69 years Female, PAIN IN LEFT SHOULDER COMPARISON: None available. TECHNIQUE: 4 views of the left shoulder. FINDINGS: Diffuse osteopenia of the visualized bones noted. No acute fracture or dislocation. Moderate to severe glenohumeral joint osteoarthritic changes noted with increased sclerosis and joint space narrowing. Moderate AC joint osteoarthritic changes are also seen. Cortical irregularity along the greater tuberosity likely represents rotator cuff tendinopathy changes. The overlying soft tissues appear grossly unremarkable. IMPRESSION: 1. No acute fracture or dislocation. 2. Moderate to severe glenohumeral joint osteoarthritic changes. 3. Moderate AC joint osteoarthritis and rotator cuff tendinopathy changes. Electronically signed by: James Kenyon MD 11/07/2019 2:53 PM [facility]
== END ==
LOC: RAD 09:07
PROVIDERS: ATTEND Orthopaedic Surgery
DX: M19.012 Primary osteoarthritis, left shoulder (principal); M75.82 Other shoulder lesions, left shoulder

== ENCOUNTER → 2020-02-27 | Outpatient (CLI) | payer MEDICARE, OTHER | LOC: LAB.O 14:28 | PROVIDERS: ATTEND Student in an Organized Health Care Education/Training Program | DX: N18.3 Chronic kidney disease, stage 3 (moderate) (principal) ==

== ENCOUNTER → 2020-07-28 | Outpatient (CLI) | payer MEDICARE, OTHER | LOC: LAB.O 10:27 | PROVIDERS: ATTEND Physician Assistant | DX: I48.91 Unspecified atrial fibrillation (principal) ==

== ENCOUNTER → 2020-09-21 | Outpatient (CLI) | payer MEDICARE, OTHER ==
--- NOTE | 2020-09-21 12:18 | RAD ---
EXAM DESCRIPTION: Hip,Right 2 Views: CR/DR/XR CLINICAL HISTORY: 70 years Female HIP PAIN COMPARISON: Lumbar spine radiographs on the same visit. TECHNIQUE: Two Views. AP neutral AP ABDuction. Large body habitus. FINDINGS: Decreased bone density. Narrowing of the superior lateral joint space with hypertrophy of the superior lateral right acetabulum. Narrowing of the medial joint space. No dislocation. No abnormal radiodense objects in the soft tissues or joint spaces. IMPRESSION: Arthrosis in the superior lateral and medial joint space with narrowing and spur on the superior lateral right acetabulum. No displaced fracture or dislocation. *Evaluation for fracture is limited given the degree of bone density loss. If high clinical concern for acute fracture, correlation with MRI recommended given its greater sensitivity in the patient with significant bone density loss. If the patient cannot tolerate MRI imaging or more urgent imaging is required, CT could be performed, however it is less sensitive in the patient with severe bone density loss, when compared to MRI. Electronically signed by: Gibson Dimas MD 09/21/2020 12:16 PM [facility]
--- NOTE | 2020-09-21 12:26 | RAD ---
EXAM DESCRIPTION: Lumbar Spine 3 Views: CR/DR/x-ray. CLINICAL HISTORY: 70 years Female LOW BACK PAIN COMPARISON: Lumbar TECHNIQUE: 3 Views lumbar spine. AP Lateral lumbosacral lateral spot L5-S1.. Technically limited by patient body habitus, bowel gas/feces, and decreased bone density. FINDINGS: Lumbar type vertebra: 5. Transitional vertebrae: None. Disc spaces: Marked narrowing L4-L5. Fusion at L5-S1. Narrowing with desiccated disc gas at L2-L3 and L3-L4. Facet joints: Unilateral or bilateral arthrosis L5-S1, L4-L5, and L3-L4. Compression deformities: None. Bone Density: Decreased Alignment: L1-L4 levoscoliosis. L4-L5 anterolisthesis. Abdomen: Increased gas and diffuse fecal matter but no definite obstruction. Multiple surgical clips anterior to the lumbar spine. Vascular calcifications. Bilateral hip joint arthrosis. IMPRESSION: Study limited by patient's decreased bone density and large body habitus. Prior fusion L5-S1. Spondylosis L2-L3 down to L4-L5. L4-L5 grade 1 anterolisthesis. Multiple levels of facet arthrosis. No compression fractures. Upper lumbar levoscoliosis. Electronically signed by: Gibson Dimas MD 09/21/2020 12:25 PM [employer]
== END ==
LOC: RAD 11:46
PROVIDERS: ATTEND Nurse Practitioner Family
DX: M85.9 Disorder of bone density and structure, unspecified (principal); M16.0 Bilateral primary osteoarthritis of hip; M25.751 Osteophyte, right hip; Z98.1 Arthrodesis status; M47.896 Other spondylosis, lumbar region; M43.16 Spondylolisthesis, lumbar region; M41.86 Other forms of scoliosis, lumbar region

== ENCOUNTER → 2020-10-28 | Outpatient (CLI) | payer MEDICARE, OTHER ==
--- NOTE | 2020-10-29 13:25 | CT ---
Study: CT Pelvis. Indication: PAIN IN RIGHT HIP Technique: CT of the pelvis obtained without intravenous contrast. Coronal and sagittal reformats performed. This exam was performed according to our departmental dose-optimization program, which includes automated exposure control, adjustment of the mA and/or kV according to patient size and/or use of iterative reconstruction technique. Comparison: None. Findings: Lower lumbar disc disease. Scattered atherosclerosis. Osteopenia. Fusion across the bilateral sacroiliac joints. Severe pubic symphysis osteoarthritis. Moderate to severe bilateral hip osteoarthritis with significant joint space narrowing. There is subchondral cystic change of the anterior superior aspects of the bilateral hip joints, right greater than left. Small joint line osteophytes. More pronounced subcortical cystic change of the posterior inferior acetabulum bilaterally, left greater than right. Impression: Moderate to severe bilateral osteoarthritis. No acute pelvic fracture identified. Evaluation for fracture is limited given the degree of osteopenia. If high clinical concern for acute fracture, correlation with MRI recommended given its greater sensitivity in the osteopenic patient. If the patient cannot tolerate MRI imaging or more urgent imaging is required, CT could be performed, however it is less sensitive in the osteopenic patient when compared to MRI. Additional findings as above. Electronically signed by: Evert Valerio MD 10/29/2020 1:24 PM NURSE EMERGENCY
== END ==
LOC: CT 11:03
PROVIDERS: ATTEND Nurse Practitioner Family
DX: M16.0 Bilateral primary osteoarthritis of hip (principal); M85.9 Disorder of bone density and structure, unspecified

== ENCOUNTER 2020-11-16 14:30 | Inpatient (IN) | payer MEDICARE, OTHER ==
--- NOTE | 2020-11-16 15:18 | RAD ---
EXAM DESCRIPTION: Chest,1 View CLINICAL HISTORY: 70 years Female, drowsiness, gen weakness COMPARISON: November 20, 2018 Findings: One view(s)/radiograph(s) Left chest wall pacemaker. Cardiomegaly with pulmonary vascular congestion. No pneumothorax. No pleural effusion. No definite focal consolidation. No acute osseous abnormality identified. IMPRESSION: Cardiomegaly with pulmonary vascular congestion. Electronically signed by: Tank Johns MD 11/16/2020 3:16 PM DESIGN STUDIO CONSULTANT
--- NOTE | 2020-11-16 15:32 | CT ---
EXAM DESCRIPTION: Head CLINICAL HISTORY: 70 years Female, drowsiness, gen weakness COMPARISON: None. TECHNIQUE: Axial images obtained from the skull base to the vertex without intravenous contrast with images. Coronal and sagittal reformations provided. This exam was performed according to our departmental dose-optimization program, which includes automated exposure control, adjustment of the mA and/or kV according to patient size and/or use of iterative reconstruction technique. Time Last Seen Well (If known) for Code Stroke: n/a FINDINGS: Brain Parenchyma, ventricles, meninges, and extra-axial spaces: Mild generalized cerebral atrophy. [id number] Nonspecific white matter hypodensities in the cerebral hemispheres likely related to ischemic small vessel disease. Possible difficulty differentiating a small acute infarction given these hypodensities. 6 mm hypodensity within the inferior right basal ganglia. 11 mm hypodensity within the inferior left basal ganglia. No acute intracranial hemorrhage. No abnormal extra-axial fluid collection. Vascular: Atherosclerosis is within the carotid siphons. Calvarium, paranasal sinuses, mastoids, and orbits: Calvarium intact. Mild because thickening of the ethmoid and right maxillary sinuses. Mastoids are clear. Orbits unremarkable. IMPRESSION: 1. No acute intracranial abnormality. 2. Chronic lacunar infarctions versus prominent perivascular spaces in the inferior basal ganglia bilaterally. 3. Senescent changes. 4. Mild right maxillary and bilateral ethmoid sinus disease. Electronically signed by: Sundar Tierney MD 11/16/2020 3:30 PM [facility]
[2020-11-16] MEDS ORDERED: SODIUM CHLORIDE 0.9% 1000ML 1,000 ML IVS ONE (16:33)
--- NOTE | 2020-11-16 17:59 | ED.PDOC ---
History of Present Illness - General Chief Complaint: General Stated Complaint: fatigue, right shoulder pain and cough Time Seen by Provider: 11/16/20 14:34 Source: patient, family Exam Limitations: no limitations - History of Present Illness Initial Comments: The patient is a 70-year-old female presented to emergency room secondary to increased fatigue over the last 3 days. No nausea vomiting or diarrhea. No chest pain. No shortness of breath. Mild cough. No syncope. No falls. The patient does have a history of CHF and chronic renal insufficiency. She does have a left lateral lower leg shallow ulceration likely due to venous insufficiency that is currently receiving wound care. The patient was recently placed on Bactrim by her doctor for this. It does not really appear to be infected at this point clinically. She is pleasant and cooperative. No fevers. She is however drowsy. She is not hypoxic. Timing/Duration: other - 3 days Severity: moderate Improving Factors: nothing Worsening Factors: nothing Associated Symptoms: loss of appetite, malaise Allergies/Adverse Reactions: Allergies Codeine Allergy (Verified 02/20/19 08:19) Other Home Medications: Ambulatory Orders Acetaminophen [Tylenol] 1,000 mg PO TID 11/19/18 Biotin W/ Vitamins C & E [Hair Skin & Nails ... 1250-7.5-7.5 Mcg-mg-Unt] 1 chw PO DAILY 11/19/18 Breo Ellipta 200-25 Mcg/INH 25 mcg INH DAILY 11/19/18 Carvedilol 25 mg PO BID 11/19/18 Cetirizine HCl [Zyrtec] 10 mg PO DAILY 11/19/18 DiphenhydrAMINE HCL [Benadryl] 50 mg PO BEDTIME 11/19/18 Duloxetine HCl 60 mg PO DAILY 11/19/18 Furosemide 40 mg PO DAILY@1200 11/19/18 Furosemide Tab [Lasix Tab] 80 mg PO DAILY@0700 11/19/18 Losartan Potassium 100 mg PO DAILY 11/19/18 Pantoprazole Tablet [Protonix] 40 mg PO DAILY 11/19/18 Spironolactone 25 mg PO DAILY 11/19/18 Tramadol HCl [Ultram] 100 mg PO BEDTIME 11/19/18 Trazodone HCl [Trazodone Hydrochloride] 50 mg PO BEDTIME 11/19/18 Warfarin Sodium 5 mg PO SUTUWEFRSA@2100 11/20/18 Tramadol HCl 50 mg PO Q4HWA PRN #20 tab 02/20/19 Review of Systems - Review of Systems Constitutional: States: malaise EENTM: States: no symptoms reported Respiratory: States: cough Cardiology: States: no symptoms reported Gastrointestinal/Abdominal: States: no symptoms reported Genitourinary: States: no symptoms reported Musculoskeletal: States: no symptoms reported Skin: States: see HPI Neurological: States: see HPI Endocrine: States: no symptoms reported All other Systems: No Change from Baseline Past Medical History (General) - Patient Medical History Hx Seizures: No Hx Stroke: No Hx Dementia: No Hx Asthma: No Hx of COPD: Yes Hx Cardiac Disorders: Yes - Chronic a fib; Venous insuffiency Hx Congestive Heart Failure: Yes Hx Pacemaker: Yes Hx Hypertension: Yes Hx Thyroid Disease: No Hx Diabetes: No Hx Gastroesophageal Reflux: No Hx Renal Disease: No Hx Cancer: No Hx of HIV: No Hx Hepatitis C: No Hx MRSA: Yes MRSA Source:: Wound Surgical History: appendectomy, cholecystectomy, Hysterectomy - Vaccination History Hx Tetanus, Diphtheria Vaccination: No Hx Influenza Vaccination: Yes Hx Pneumococcal Vaccination: Yes - Social History Hx Tobacco Use: No Hx Alcohol Use: Yes - Infrequently Hx Substance Use: No Hx Substance Use Treatment: No Hx Depression: No Hx Emotional Abuse: No - Female History Patient is a Female of Child Bearing Age (10 -59 yrs old): No Family Medical History - Family History Mother Family History: Unknown Living Status: Age at (years of age): 83 Cause of : Heart failure Physical Exam - Physical Exam General Appearance: Frail, Other - [place] Exam: bilateral normal Ears, Nose, Throat: hearing grossly normal, normal pharynx Neck: full range of motion, supple Respiratory: chest non-tender, lungs clear, normal breath sounds, no respiratory distress, no accessory muscle use Cardiovascular/Chest: normal peripheral pulses, regular rate, rhythm Peripheral Pulses: radial,right: 2+, radial,left: 2+ Gastrointestinal/Abdominal: non tender, soft Rectal Exam: deferred Extremity: normal range of motion, no calf tenderness, normal capillary refill, pedal edema Neurologic: temperature regulator II-XII nml as tested, alert, normal mood/affect, oriented x 3, other - Sleepy Skin Exam: other - Lateral area to left lower extremity with shallow ulceration Comments: Vital Signs (72 hours) 11/16/20 11/16/20 14:50 15:01 Temperature 98.6 F Pulse Rate [ 96 H 94 H Right Radial] Respiratory 20 20 Rate Blood Pressure 149/83 [Left Arm] O2 Sat by Pulse 92 L Oximetry Progress - Progress Progress: 11/16/20 18:01 The patient is a 70-year-old female presented emergency room secondary to increased lethargy. This is most likely due to uremia likely related to rece nt diuresis. The patient is being rehydrated gently. She has received a little more than a liter of fluid so far here. The patient does have a history of significant congestive heart failure and thus rehydration will need to be slow. Additionally the patient is positive for rhinovirus which is likely contributing to symptoms as well. She does have a mild maxillary sinusitis which is probably chronic. Given her current renal function we will hold off on antibiotics until she is doing better. Admit for continued care. The patient is supratherapeutic on her INR. No evidence of any spontaneous bleeding. Coumadin will be held and we will follow for correction. Fall precautions do need to be taken. nicole hyman [id number] - Results/Orders Results/Orders: Chest x-ray shows mild cardiomegaly and mild pulmonary vascular congestion. No significant infiltrates. Head CT shows maxillary sinusitis that is mild. There are chronic lacunar changes. No acute hemorrhage or large territory infarction or mass. EKG shows what looks like a paced ventricular rhythm at 94 bpm. Difficult to interpret otherwise. Laboratory Results - last 24 hr 11/16/20 11/16/20 11/16/20 15:30 15:30 15:30 WBC 5.7 RBC 3.37 L Hgb 9.9 L Hct 31.2 L MCV 92.4 MCH 29.3 MCHC 31.7 L RDW 13.9 Plt Count 166 MPV 9.7 Absolute Neuts (auto) 4.20 Absolute Lymphs (auto) 0.60 L Absolute Monos (auto) 0.60 Absolute Eos (auto) 0.20 Absolute Basos (auto) 0.00 Neutrophils % 74.8 Lymphocytes % 10.4 L Monocytes % 11.4 H Eosinophils % 2.7 Basophils % 0.7 PT 85.5 H* INR 8.74 H* PTT (SP) 55.5 H* Fibrinogen 343 D-Dimer, Quantitative 127.0 L Sodium 135 Potassium 4.4 Chloride 98 L Carbon Dioxide 22 Anion Gap 19.4 H BUN 92 H Creatinine 3.92 H BUN/Creatinine Ratio 23.5 H Random Glucose 89 Serum Osmolality 297.9 H Lactic Acid Calcium 7.6 L Magnesium 2.0 Total Bilirubin 0.4 AST 31 ALT 19 Alkaline Phosphatase 97 LD Total Creatine Kinase 380 H* CK-MB (CK-2) 6.8 H* CK-MB (CK-2) % 1.79 Troponin I < 0.02 C-Reactive Protein B-Natriuretic Peptide 459.0 H* Serum Total Protein 7.2 Albumin 3.7 Globulin 3.5 Albumin/Globulin Ratio 1.1 TSH 0.84 11/16/20 11/16/20 15:30 15:35 WBC RBC Hgb Hct MCV MCH MCHC RDW Plt Count MPV Absolute Neuts (auto) Absolute Lymphs (auto) Absolute Monos (auto) Absolute Eos (auto) Absolute Basos (auto) Neutrophils % Lymphocytes % Monocytes % Eosinophils % Basophils % PT INR PTT (SP) Fibrinogen D-Dimer, Quantitative Sodium Potassium Chloride Carbon Dioxide Anion Gap BUN Creatinine BUN/Creatinine Ratio Random Glucose Serum Osmolality Lactic Acid 0.7 Calcium Magnesium Total Bilirubin AST ALT Alkaline Phosphatase LD Total 202 H Creatine Kinase CK-MB (CK-2) CK-MB (CK-2) % Troponin I C-Reactive Protein 3.5 H B-Natriuretic Peptide Serum Total Protein Albumin Globulin Albumin/Globulin Ratio TSH - EKG/XRAY/CT CT Ordered: No CT Interpretation Call Back: No Departure - Departure Clinical Impression: Rhinovirus infection, Supratherapeutic INR Acute on chronic renal failure Qualifiers: Acute renal failure type: unspecified Chronic kidney disease stage: stage 4 (severe) Qualified Code(s): N17.9 - Acute kidney failure, unspecified; N18.4 - Chronic kidney disease, stage 4 (severe) Disposition: Admit Patient Condition: Fair Departure Forms: ED Discharge - Pt. Copy, Patient Portal Self Enrollment Referrals: Clayton Walter MD [Primary Care Provider] - 1-2 Weeks Home Medications: Ambulatory Orders Acetaminophen [Tylenol] 1,000 mg PO TID 11/19/18 Biotin W/ Vitamins C & E [Hair Skin & Nails ... 1250-7.5-7.5 Mcg-mg-Unt] 1 chw PO DAILY 11/19/18 Breo Ellipta 200-25 Mcg/INH 25 mcg INH DAILY 11/19/18 Carvedilol 25 mg PO BID 11/19/18 Cetirizine HCl [Zyrtec] 10 mg PO DAILY 11/19/18 DiphenhydrAMINE HCL [Benadryl] 50 mg PO BEDTIME 11/19/18 Duloxetine HCl 60 mg PO DAILY 11/19/18 Furosemide 40 mg PO DAILY@1200 11/19/18 Furosemide Tab [Lasix Tab] 80 mg PO DAILY@0700 11/19/18 Losartan Potassium 100 mg PO DAILY 11/19/18 Pantoprazole Tablet [Protonix] 40 mg PO DAILY 11/19/18 Spironolactone 25 mg PO DAILY 11/19/18 Tramadol HCl [Ultram] 100 mg PO BEDTIME 11/19/18 Trazodone HCl [Trazodone Hydrochloride] 50 mg PO BEDTIME 11/19/18 Warfarin Sodium 5 mg PO SUTUWEFRSA@2100 11/20/18 Tramadol HCl 50 mg PO Q4HWA PRN #20 tab 02/20/19 Decision To Admit - Decistion To Admit Decision to Admit Reason: Medical Nature Decision to Admit Date: 11/16/20 Decision to Admit Time: 18:04
--- NOTE | 2020-11-16 18:30 | HP ---
SUPERVISING PHYSICIAN: Krystal Reed MD CHIEF COMPLAINT: General fatigue and cough. HISTORY OF PRESENT ILLNESS: Ms. Lakhani is a 70-year-old female patient that has a history of congestive heart failure, obesity, chronic stasis ulcers to lower extremities, chronic obstructive pulmonary disease, hypertension with pulmonary hypertension, chronic atrial fibrillation. She presents to the Emergency Room today complaining of increasing fatigue over the last three days. She was treated for some mild cellulitis and worsening of her stasis ulcers due to venous insufficiency to the lower extremities with Bactrim over the last five days. She endorses that her left lower leg on the lateral aspect has been having some areas concerning for infection and that was what she was treated for, receiving wound care. She denied any fevers, chills or significant coughing. Her vital signs in the Emergency Room showed she was afebrile with temperature 98.6, saturation 98% on room air with blood pressure 111/84. Lab studies showed white count 5,700 without a left shift. Coagulation studies showed her D-dimer was normal, but INR was 8.74 and she is on chronic Coumadin therapy. Chemistries showed her creatinine was 3.92, which is elevated for her. Looking at her baseline levels, it appears that she runs around 1.8. She does take quite a few diuretics in the form of Lasix and spironolactone which she has been taking as directed in efforts to decrease the edema to her lower extremities. Her anion gap was elevated at 19.4. CO2 was normal at 22. Lactic acid was normal. C-reactive protein was elevated at 3.5. BNP was elevated at 459. Respiratory panel showed she was positive for human rhinovirus/enterovirus, but negative for COVID and influenza and all other bacterial and viral targets. Blood cultures were completed. A chest x-ray showed cardiomegaly with pulmonary vascular congestion. CT of her head without contrast showed no acute intracranial abnormalities. There was note of chronic lacunar infarction versus prominent perivascular spaces in inferior basal ganglia bilaterally with some mild maxillary and bilateral ethmoid sinus disease. Given her acute renal failure which probably is due to dehydration from diuretics exacerbated by her recent antibiotic usage of Bactrim, she is going to be admitted for further treatment and evaluation. Her INR was supratherapeutic, but she had no areas for concern for acute loss or any abnormal bleeding. She was in stable condition at time of admission. PAST MEDICAL HISTORY: 1. Hypertension. 2. Pulmonary hypertension followed by Dr. Rodriguez. 3. Chronic atrial fibrillation with a pacemaker implantation on chronic Coumadin therapy. 4. History of tricuspid regurgitation. 5. History of chronic dyspnea associated with congestive heart failure, but no echocardiogram available at time of admission. 6. Chronic venous stasis ulcers due to venous insufficiency of the bilateral lower extremities with recent treatment with Bactrim. PAST SURGICAL HISTORY: 1. Cholecystectomy. 2. Compression fractures after a fall involving C2, C3, C4 requiring surgical stabilization. 3. Bilateral knee replacements. 4. Gastric bypass surgery. 5. Hernia repair. 6. Appendectomy. 7. Open reduction and internal fixation of elbow fracture. 8. section x1. HOME MEDICATIONS: 1. Coumadin 5 mg daily. 2. Trazodone 50 mg at bedtime. 3. Tramadol 100 mg at bedtime. 4. Spironolactone 25 mg daily. 5. Pregabalin 15 mg b.i.d. 6. Protonix 40 mg daily. 7. Losartan/potassium 50 mg daily. 8. Levothyroxine 100 mcg daily. 9. Lasix b.i.d. 10. Iron sulfate 325 mg daily. 11. Duloxetine 60 mg daily. 12. Benadryl 50 mg at bedtime. 13. Vitamin D3 supplementation 2000 units daily. 14. Zyrtec 10 mg daily. 15. Carvedilol 25 mg b.i.d. 16. Calcitrol 0.25 mcg daily. 17. Breo Ellipta 200-25 mcg inhaled daily. 18. Tylenol 100 mg t.i.d. ALLERGIES: CODEINE. FAMILY HISTORY: Father at age 51 with cardiovascular disease. Mother at age 83 with history of heart failure. He has three siblings, all alive and having history of hypertension, atrial fibrillation, strokes, renal problems. A brother has had a brain aneurysm and has had coronary artery bypass graft. She has two children and one daughter has atrial fibrillation. SOCIAL HISTORY: The patient resides in [place], [place]. She is . She is a retired middle school assistant principal. She has never smoked, rarely drinks alcohol and does not use any illicit drugs. REVIEW OF SYSTEMS: CONSTITUTIONAL: Denies any unintentional weight loss. Positive for general malaise. Denies fevers. HEENT: Denies sore throats, earaches, vision changes. Positive for nasal congestion. RESPIRATORY: Positive for chronic dyspnea, more exertional. Denies coughing, wheezing. CARDIOVASCULAR: Positive for exertional dyspnea. Denies chest pain or syncopal episodes. Positive for chronic lower extremity edema. GASTROINTESTINAL: Denies nausea, vomiting, diarrhea, constipation. GENITOURINARY: Denies dysuria, hematuria, polyuria or other urinary symptoms. MUSCULOSKELETAL: Negative for any general arthralgias. NEUROLOGIC: Negative for seizures, ataxia, syncopal episodes, vision changes, headaches. Positive for generalized weakness. HEMATOLOGIC: Denies unexplained bleeding, bruising or transfusion reactions. Currently on chronic Coumadin therapy. PHYSICAL EXAMINATION: VITAL SIGNS: Temperature 98.1, pulse 95, blood pressure 135/82, respirations 16, saturation 98% on room air. GENERAL: The patient is frail, obese, does not look to be in any distress. She is resting comfortably. HEENT: Tympanic membranes clear bilaterally. Oropharynx is pink with notable dry mucous membranes. NECK: Supple with limited range of motion due to previous cervical surgery. No obvious jugular venous distention noted. RESPIRATORY: Lung sounds slightly diminished due to body habitus. No obvious rhonchi, wheezes or rales. CARDIOVASCULAR: Regular rate and rhythm and noted to be paced on monitor. ABDOMEN: Obese, but soft, nontender. Positive bowel sounds. RECTAL: Deferred. EXTREMITIES: She does have chronic venous stasis changes to bilateral legs with various stasis ulcers to the lateral aspects on both legs. They are weeping just serous fluid. The areas are reddened with obvious cellulitis, but no obvious purulent drainage. Distally, pulses 1+ bilaterally. SKIN: On the lateral aspects of left lower extremity and right lower extremity, there are some shallow ulcerations as noted above. Otherwise, no other cyanosis, clubbing or edema. LABORATORY: White count 5,700, hemoglobin 9, hematocrit 31.2, platelet count 166,000. Differential without a left shift. ASSESSMENT: 1. Acute renal failure likely secondary to prerenal azotemia from dehydration from Lasix and exacerbated by recent Bactrim for treatment of lower extremity cellulitis. 2. Upper viral respiratory infection due to enterovirus, but negative for COVID. 3. Congestive heart failure, etiology uncertain with no echocardiogram available at time of admission with echocardiogram pending with the patient having elevated BNP on admission and bilateral lower extremity edema. 4. History of chronic venous stasis ulcers due to venous insufficiency with recent treatment with Bactrim for cellulitis. 5. Supratherapeutic INR with the patient on chronic Coumadin therapy with no signs of acute bleeding. 6. Chronic atrial fibrillation with a controlled ventricular rate with paced rhythm with the patient on chronic Coumadin therapy. 7. History of hypertension with associated pulmonary hypertension, followed by Dr. Rodriguez. 8. History of tricuspid regurgitation. 9. Obesity with body mass index of 47. PLAN: Ms. Lakhani is going to be admitted for initiation of treatment with fluids for acute renal failure. Given that she does have a history of congestive heart failure, we will be cautious and slowly hydrate her. I have ordered an echocardiogram in the morning to further assess her ejection fraction. She also has bilateral Doppler studies ordered tomorrow even though she is on Coumadin just to ensure there is not any present DVTs as the patient has been known to be noncompliant with her Coumadin in the past. We will keep her legs elevated. We have cultured the wounds on the lower extremities and given her history and clinical assessment indicating cellulitis and developing cellulitis with the stasis ulcers, we will start her on some vancomycin initially tonight with 1750 and then we will followup with pharmacy protocol. We will resume her home medications once they are updated and verified as appropriate to her care. I have placed her on oral fluid restrictions given that renal function has significant decreased and we are giving her IV fluids and known history of congestive heart failure. Again, we will hold her diuretics until we can get her volume depletion corrected. She will be in isolation due to the enterovirus, but she was negative for COVID. In addition to the vancomycin, we will also start her on Rocephin. We will hold her Coumadin in the morning and repeat her INR. We will follow her labs closely. We will also need to get a physical therapy consult at some point once she is able to participate with any physical therapy due to the fact that she came in in a significantly deconditioned state. I would anticipate her length of stay to be at least two to three days. Until the patient can transition to outpatient management, we will continue to monitor and treat as needed. [facility][id number] [facility]
[2020-11-16] MEDS ORDERED: ONDANSETRON INJ 4 MG/2 ML VIAL IV PRN (20:29)
[2020-11-16] MEDS ORDERED: ACETAMINOPHEN 325 MG TAB PO PRN (20:29)
[2020-11-16] MEDS ORDERED: SODIUM CHLORIDE 0.9% (FLUSH) 10 ML SYG IV PRN (20:29)
[2020-11-16] MEDS ORDERED: MAGNESIUM HYDROXIDE 30 ML UD PO PRN (20:29)
[2020-11-16] MEDS ORDERED: ALUM & MAG HYDROX-SIMETHICONE 30 ML UD PO PRN (20:29)
[2020-11-16] MEDS: SODIUM CHLORIDE 0.9% 1000ML 1,000 ML IVS PRN (20:56)
[2020-11-16] MEDS: IV SET AND CAP CHANGE INJ INJ SCH (20:57)
[2020-11-16] MEDS ORDERED: VANCOMYCIN HCL INJ 1,000 MG VIAL IVPB ONE (21:48)
[2020-11-16] MEDS ORDERED: PREGABALIN 25 MG CAP ONE (21:49)
[2020-11-16] MEDS ORDERED: SODIUM CHLORIDE 0.9% 500ML 500 ML ONE (21:49)
[2020-11-16] MEDS ORDERED: CARVEDILOL 12.5 MG TAB ONE (21:49)
[2020-11-16] MEDS ORDERED: cefTRIAXone SODIUM 1 GM VIAL ONE (21:49)
[2020-11-16] MEDS ORDERED: SODIUM CHL 0.9% 50ML MIN-BAG+ 50 ML IVPB ONE (21:50)
[2020-11-16] MEDS: ACETAMINOPHEN 500 MG TAB PO SCH (21:53)
[2020-11-16] MEDS: NON-FORMULARY MEDICATION 1 EA MIS (Carvedilol [Carvedilol] 25 MG) PO SCH (21:54)
[2020-11-16] MEDS: PREGABALIN 50 MG PO SCH (21:55)
[2020-11-16] MEDS: cefTRIAXone SODIUM 1 GM in SODIUM CHL 0.9% 50ML MIN-BAG+ 50 ML IVPB SCH (21:57)
[2020-11-16] MEDS ORDERED: VANCOMYCIN HCL INJ 1,750 MG in SODIUM CHLORIDE 0.9% 500ML 500 ML IVPB ONE (23:00)
--- NOTE | 2020-11-17 07:45 | RAD ---
EXAM: XR CHEST 1 VIEW HISTORY: 70 years, Female, SOB, Hc CHF and PHTN TECHNIQUE: Chest,1 View COMPARISON: November 16, 2020 FINDINGS: Dual-lead pacemaker. Cardiomegaly unchanged. The previously seen mild vascular congestion has improved. No focal infectious infiltrate or consolidation. Apices are partially obscured by the patient's head. IMPRESSION: Cardiomegaly. Electronically signed by: Loli Barnes MD 11/17/2020 7:43 AM FAMILY COACH
[2020-11-17] MEDS ORDERED: VANCOMYCIN PER PHARMACY INJ SCH (08:00)
[2020-11-17] MEDS ORDERED: DULoxetine HCL 30 MG CAP PO ONE (08:18)
[2020-11-17] MEDS ORDERED: CARVEDILOL 12.5 MG TAB ONE ×2 (08:19→19:25)
[2020-11-17] MEDS ORDERED: PREGABALIN 25 MG CAP ONE ×2 (08:19→19:25)
[2020-11-17] MEDS ORDERED: LOSARTAN POTASSIUM 25 MG TAB ONE (08:20)
[2020-11-17] MEDS: BIFIDOBACTERIUM INFANTIS 4 MG CAP PO SCH (08:39)
[2020-11-17] MEDS: PREGABALIN 50 MG PO SCH (08:39)
[2020-11-17] MEDS: NON-FORMULARY MEDICATION 1 EA MIS (Carvedilol [Carvedilol] 25 MG) PO SCH (08:39)
[2020-11-17] MEDS: LOSARTAN POTASSIUM 100 MG TAB PO SCH (08:39)
[2020-11-17] MEDS: CALCITRIOL 0.25 MCG CAP PO SCH (08:39)
[2020-11-17] MEDS: FERROUS SULFATE 325 MG TAB PO SCH (08:39)
[2020-11-17] MEDS: CETIRIZINE HCL 10 MG TAB PO SCH (08:40)
[2020-11-17] MEDS: ACETAMINOPHEN 500 MG TAB PO SCH ×3 (08:40→23:19)
[2020-11-17] MEDS ORDERED: BREO ELLIPTA INH SCH (09:00)
[2020-11-17] MEDS ORDERED: NON-FORMULARY MEDICATION 1 EA MIS (Duloxetine Hcl [Duloxetine Hcl] 60 MG) PO SCH (09:00)
[2020-11-17] MEDS ORDERED: PANTOPRAZOLE SODIUM TAB 40 MG PO SCH (09:00)
[2020-11-17] MEDS ORDERED: LEVOTHYROXINE SODIUM 0.1 MG TAB PO SCH (09:00)
[2020-11-17] MEDS: ALBUTEROL SULFATE 2.5 MG/3 ML VIAL NEB SCH ×3 (12:44→20:42)
[2020-11-17] MEDS: BUDESONIDE NEBS 0.5 MG/2 ML INH NEB SCH ×2 (12:44→20:42)
--- NOTE | 2020-11-17 13:04 | US ---
EXAM DESCRIPTION: Venous,Lower Extremity LT: ULTRASOUND. CLINICAL HISTORY: Wilbert LE edema COMPARISON: None Available. TECHNIQUE: Mar-scale and doppler sonographic evaluation of the deep venous system of the left lower extremity. FINDINGS: Doppler evaluation shows normal color flow and normal phasicity and augmentation of the left common femoral vein, left femoral vein, popliteal vein, left greater saphenous vein, junction with the CFV. Also normal color flow and normal phasicity and augmentation of the peroneal, and posterior tibial vein. The left lower extremity deep veins were completely compressible; normal occlusion with transducer pressure. Mar-scale survey showed no echogenic thrombus within these veins. Minimal subcutaneous edema in the adipose tissue of the left calf. IMPRESSION: 1. Duplex ultrasound evaluation of the left lower extremity deep venous system showing no evidence of thrombosis. 2. Minimal subcutaneous edema in the adipose tissue of the left calf. Electronically signed by: Gibson Dimas MD 11/17/2020 1:03 PM LEASE OPERATOR
[2020-11-17] MEDS: SODIUM CHLORIDE 0.9% 1000ML 1,000 ML IVS PRN (15:36)
--- NOTE | 2020-11-17 16:31 | US ---
EXAM DESCRIPTION: Venous,Lower Extremity RT: ULTRASOUND. CLINICAL HISTORY: Wilbert LE edema COMPARISON: None Available. TECHNIQUE: Mar-scale and doppler sonographic evaluation of the deep venous system of the right lower extremity. FINDINGS: Doppler evaluation shows normal color flow and normal phasicity and augmentation of the right common femoral vein, right femoral vein, popliteal vein, right greater saphenous vein, junction with the CFV. Also normal color flow and normal phasicity and augmentation of the peroneal, and posterior tibial vein. The right lower extremity deep veins were completely compressible; normal occlusion with transducer pressure. Mar-scale survey showed no echogenic thrombus within these veins. Interstitial edema in the subcutaneous adipose tissue of the right calf. IMPRESSION: 1. Duplex ultrasound evaluation of the right lower extremity deep venous system showing no evidence of thrombosis. 2. Interstitial edema in the subcutaneous adipose tissue of the right calf. Electronically signed by: Gibson Dimas MD 11/17/2020 4:30 PM FURNACE RELINER
--- NOTE | 2020-11-17 16:53 | PN ---
SUPERVISING PHYSICIAN: Krystal Reed MD DATE: 11/17/20 SUBJECTIVE: The patient has had a little bit of wheezing this morning, but no reported shortness of breath. She had episodes of some diarrhea and a little nosebleed from blowing her nose. It stopped without intervention. She notes that her legs are not quite as sore and tender as they were last night on admission. OBJECTIVE: VITAL SIGNS: Temperature 97.9, pulse 96, blood pressure 105/62, respirations 16, saturation 94% on room air. GENERAL: The patient is resting comfortably in no acute distress. CHEST: She does have some audible wheezing. I am not sure if this is just upper airway that she is forcing at times with taking deep breaths. I do not hear it on auscultation, but she does have an acute viral infection, so we will watch it closely. Otherwise, diminished towards the bases. No rales or rhonchi. HEART: Regular rate and rhythm. ABDOMEN: Obese, but soft and nontender. Positive bowel sounds. EXTREMITIES: Chronic stasis ulcers noted in bilateral legs with some venous stasis ulcers that are now covered with dressing. Distally, pulses 1+. SKIN: As noted on the extremity assessment. Otherwise, clean and dry with no obvious other issues. LABORATORY: White count 4,400, hemoglobin 9.1, hematocrit 27.9, platelet count 141,000. Differential is without a left shift. D-dimer this morning is down to 4.56. Chemistries show normal electrolytes. Creatinine is down to 3.19. BUN elevated at 80. Calcium 7.3. RADIOLOGY: Chest x-ray this morning per radiologic interpretation showed cardiomegaly, unchanged, but mild vascular congestion is notably improved. Lower extremity ultrasound of the left lower extremity show no evidence of thrombus, minimal subcutaneous edema in adipose tissue of the left calf. ASSESSMENT: 1. Acute renal failure likely secondary to prerenal azotemia from dehydration from Lasix and exacerbated by recent Bactrim for treatment of lower extremity cellulitis. 2. Upper viral respiratory infection due to enterovirus, but negative for COVID. 3. Congestive heart failure, etiology uncertain with no echocardiogram available at time of admission with echocardiogram pending with the patient having elevated BNP on admission and bilateral lower extremity edema. 4. History of chronic venous stasis ulcers due to venous insufficiency with recent treatment with Bactrim for cellulitis. 5. Supratherapeutic INR with the patient on chronic Coumadin therapy with no signs of acute bleeding. 6. Chronic atrial fibrillation with a controlled ventricular rate with paced rhythm with the patient on chronic Coumadin therapy. 7. History of hypertension with associated pulmonary hypertension, followed by Dr. Rodriguez. 8. History of tricuspid regurgitation. 9. Obesity with body mass index of 47. PLAN: We will continue with current plan of care at this point with slow fluids and antibiotic coverage with Rocephin and vancomycin which is per pharmacy protocol for renal function. She is on Lovenox which has been dosed for renal insufficiency and acute renal failure. She does remain on fluid restrictions and we will closely monitor I&Os. I have started her on some breathing treatments with albuterol as well as some Pulmicort because she is on Breo inhaler and we do not have that available at this point. She did have some slight wheezing and with her recent diagnosis of upper respiratory viral infection, I think she will do well with this. Until the patient can transition to outpatient management and get a good physical therapy assessment on her to fully assess her ability to return home, we will continue to monitor and treat as needed. #[id number] [facility]
[2020-11-17] MEDS ORDERED: traMADol HCL 50 MG TAB ONE (19:24)
[2020-11-17] MEDS ORDERED: traZODone HCL 50 MG TAB ONE (19:25)
[2020-11-17] MEDS ORDERED: diphenhydrAMINE HCL 25 MG CAP ONE (19:25)
[2020-11-17] MEDS: PREGABALIN 25 MG CAP PO SCH (19:29)
[2020-11-17] MEDS: traMADol HCL 50 MG TAB PO SCH (19:30)
[2020-11-17] MEDS: diphenhydrAMINE HCL 25 MG CAP PO SCH (19:31)
[2020-11-17] MEDS: CARVEDILOL 12.5 MG TAB PO SCH (19:31)
[2020-11-17] MEDS: cefTRIAXone SODIUM 1 GM in SODIUM CHL 0.9% 50ML MIN-BAG+ 50 ML IVPB SCH (19:32)
[2020-11-17] MEDS: traZODone HCL 50 MG TAB PO SCH (19:32)
[2020-11-18] MEDS: SODIUM CHLORIDE 0.9% 1000ML 1,000 ML IVS PRN (03:27)
[2020-11-18] MEDS: PANTOPRAZOLE SODIUM TAB 40 MG PO SCH (06:07)
[2020-11-18] MEDS: LEVOTHYROXINE SODIUM 0.1 MG TAB PO SCH (06:07)
[2020-11-18] MEDS: BUDESONIDE NEBS 0.5 MG/2 ML INH NEB SCH ×2 (08:05→20:42)
[2020-11-18] MEDS: ALBUTEROL SULFATE 2.5 MG/3 ML VIAL NEB SCH ×4 (08:05→20:42)
[2020-11-18] MEDS: CARVEDILOL 12.5 MG TAB PO SCH ×2 (08:27→20:28)
[2020-11-18] MEDS: BIFIDOBACTERIUM INFANTIS 4 MG CAP PO SCH (08:27)
[2020-11-18] MEDS: CALCITRIOL 0.25 MCG CAP PO SCH (08:28)
[2020-11-18] MEDS: DULoxetine HCL 30 MG CAP PO SCH (08:28)
[2020-11-18] MEDS: FERROUS SULFATE 325 MG TAB PO SCH (08:28)
[2020-11-18] MEDS: LOSARTAN POTASSIUM 100 MG TAB PO SCH (08:28)
[2020-11-18] MEDS: CETIRIZINE HCL 10 MG TAB PO SCH (08:28)
[2020-11-18] MEDS: PREGABALIN 25 MG CAP PO SCH ×2 (08:29→20:28)
[2020-11-18] MEDS: ACETAMINOPHEN 500 MG TAB PO SCH ×2 (09:08→15:47)
--- NOTE | 2020-11-18 11:25 | PN ---
SUPERVISING PHYSICIAN: Krystal Reed MD DATE: 11/18/20 SUBJECTIVE: The patient is lying in bed asleep. She awakens easily. She has no complaints of nausea and vomiting, diarrhea or constipation, chest pain or shortness of breath. OBJECTIVE: VITAL SIGNS: Temperature 98, heart rate 91, blood pressure 120/81, respirations 20, saturation 93% on room air. CHEST: Essentially clear to auscultation bilaterally. Somewhat diminished throughout. HEART: Regular rate and rhythm. EXTREMITIES: Bilateral lower extremities are wrapped and her pedal pulses are palpable at +1. Her right lower extremity is slightly more edematous than the left leg. NEUROLOGIC: She is awake, alert, and oriented x3. LABORATORY: WBC 4,400, hemoglobin 9.1, hematocrit 27.9. INR 2.44. Electrolytes are basically within normal limits with the exception of her calcium is low at 7.8, BUN 73, creatinine has improved to 2.32. Preliminary blood cultures show no growth after 24 hours. Wound culture is pending. All other labs and films have been reviewed via the EMR. ASSESSMENT: 1. Acute renal failure likely secondary to prerenal azotemia from dehydration secondary to Lasix and exacerbated by Bactrim treatment for lower extremity cellulitis. 2. Upper viral respiratory infection due to enterovirus, but negative for COVID. 3. Congestive heart failure of unknown etiology. She did have an elevated BNP on admission as well worsening bilateral lower extremity edema. 4. Chronic venous stasis ulcer due to venous insufficiency. 5. Supratherapeutic INR with the patient on chronic Coumadin therapy. Her INR is normalized. 6. Chronic atrial fibrillation on Coumadin therapy. 7. Hypertension with associated pulmonary hypertension. 8. History of tricuspid regurgitation. 9. Obesity with body mass index of 47. PLAN: We will continue present supportive care including her antibiotic coverage. I have discontinued her fluids. Her Lovenox has been discontinued and her Coumadin has been restarted. Have ordered lab for in the morning and will follow her closely and treat as needed. #[id number] [facility]
[2020-11-18] MEDS ORDERED: WARFARIN SODIUM 3 MG TAB PO ONE (12:00)
[2020-11-18] MEDS: diphenhydrAMINE HCL 25 MG CAP PO SCH (20:27)
[2020-11-18] MEDS: traZODone HCL 50 MG TAB PO SCH (20:28)
[2020-11-18] MEDS: traMADol HCL 50 MG TAB PO SCH (20:28)
[2020-11-18] MEDS: cefTRIAXone SODIUM 1 GM in SODIUM CHL 0.9% 50ML MIN-BAG+ 50 ML IVPB SCH (20:36)
[2020-11-19] MEDS: ACETAMINOPHEN 500 MG TAB PO SCH ×5 (00:02→20:31)
[2020-11-19] MEDS: LEVOTHYROXINE SODIUM 0.1 MG TAB PO SCH (06:22)
[2020-11-19] MEDS: PANTOPRAZOLE SODIUM TAB 40 MG PO SCH (06:26)
[2020-11-19] MEDS ORDERED: ACETAMINOPHEN 500 MG TAB ONE (07:12)
[2020-11-19] MEDS: FERROUS SULFATE 325 MG TAB PO SCH (08:14)
[2020-11-19] MEDS: PREGABALIN 25 MG CAP PO SCH ×2 (08:14→20:36)
[2020-11-19] MEDS: LOSARTAN POTASSIUM 100 MG TAB PO SCH (08:15)
[2020-11-19] MEDS: DULoxetine HCL 30 MG CAP PO SCH (08:15)
[2020-11-19] MEDS: CALCITRIOL 0.25 MCG CAP PO SCH (08:15)
[2020-11-19] MEDS: CARVEDILOL 12.5 MG TAB PO SCH ×2 (08:16→20:32)
[2020-11-19] MEDS: BIFIDOBACTERIUM INFANTIS 4 MG CAP PO SCH (08:16)
[2020-11-19] MEDS: CETIRIZINE HCL 10 MG TAB PO SCH (08:16)
[2020-11-19] MEDS: BREO ELLIPTA INH SCH (08:53)
[2020-11-19] MEDS: BUDESONIDE NEBS 0.5 MG/2 ML INH NEB SCH ×2 (08:53→21:09)
[2020-11-19] MEDS: ALBUTEROL SULFATE 2.5 MG/3 ML VIAL NEB SCH ×4 (08:53→21:09)
[2020-11-19] MEDS ORDERED: WARFARIN SODIUM 5 MG TAB PO ONE (12:32)
[2020-11-19] MEDS ORDERED: WARFARIN SODIUM 5 MG TAB ONE (13:24)
[2020-11-19] MEDS ORDERED: VANCOMYCIN HCL INJ 1,000 MG VIAL IVPB ONE (15:50)
[2020-11-19] MEDS ORDERED: SODIUM CHLORIDE 0.9% 500ML 0 ML ONE (15:50)
[2020-11-19] MEDS ORDERED: VANCOMYCIN HCL INJ 500 MG VIAL ONE (15:50)
[2020-11-19] MEDS ORDERED: SODIUM CHLORIDE 0.9% 250ML 250 ML ONE (15:52)
[2020-11-19] MEDS: VANCOMYCIN HCL INJ 1,000 MG, VANCOMYCIN HCL INJ 500 MG in SODIUM CHLORIDE 0.9% 250ML 25... IVPB SCH (15:55)
[2020-11-19] MEDS: diphenhydrAMINE HCL 25 MG CAP PO SCH (20:31)
[2020-11-19] MEDS: traMADol HCL 50 MG TAB PO SCH (20:32)
[2020-11-19] MEDS: traZODone HCL 50 MG TAB PO SCH (20:32)
[2020-11-19] MEDS: cefTRIAXone SODIUM 1 GM in SODIUM CHL 0.9% 50ML MIN-BAG+ 50 ML IVPB SCH (20:58)
[2020-11-19] MEDS: IV SET AND CAP CHANGE INJ INJ SCH (21:03)
[2020-11-20] MEDS: PANTOPRAZOLE SODIUM TAB 40 MG PO SCH (06:24)
[2020-11-20] MEDS: LEVOTHYROXINE SODIUM 0.1 MG TAB PO SCH (06:24)
[2020-11-20] MEDS: ALBUTEROL SULFATE 2.5 MG/3 ML VIAL NEB SCH ×3 (07:00→17:42)
[2020-11-20] MEDS: BUDESONIDE NEBS 0.5 MG/2 ML INH NEB SCH (07:00)
[2020-11-20] MEDS: ACETAMINOPHEN 500 MG TAB PO SCH ×3 (08:34→20:45)
[2020-11-20] MEDS: FERROUS SULFATE 325 MG TAB PO SCH (08:34)
[2020-11-20] MEDS: BIFIDOBACTERIUM INFANTIS 4 MG CAP PO SCH (08:34)
[2020-11-20] MEDS: CETIRIZINE HCL 10 MG TAB PO SCH (08:35)
[2020-11-20] MEDS: CALCITRIOL 0.25 MCG CAP PO SCH (08:35)
[2020-11-20] MEDS: CARVEDILOL 12.5 MG TAB PO SCH ×2 (08:36→20:45)
[2020-11-20] MEDS: PREGABALIN 25 MG CAP PO SCH ×2 (08:36→20:45)
[2020-11-20] MEDS: LOSARTAN POTASSIUM 25 MG TAB PO SCH (08:36)
[2020-11-20] MEDS: DULoxetine HCL 30 MG CAP PO SCH (08:36)
[2020-11-20] MEDS ORDERED: WARFARIN SODIUM 5 MG, WARFARIN SODIUM 2.5 MG PO ONE ×2 (10:07)
[2020-11-20] MEDS: BREO ELLIPTA INH SCH (14:13)
[2020-11-20] MEDS ORDERED: WARFARIN SODIUM 5 MG TAB ONE (16:40)
[2020-11-20] MEDS: diphenhydrAMINE HCL 25 MG CAP PO SCH (20:45)
[2020-11-20] MEDS: traZODone HCL 50 MG TAB PO SCH (20:45)
[2020-11-20] MEDS: traMADol HCL 50 MG TAB PO SCH (20:45)
[2020-11-20] MEDS: cefTRIAXone SODIUM 1 GM in SODIUM CHL 0.9% 50ML MIN-BAG+ 50 ML IVPB SCH (22:36)
[2020-11-21] MEDS: BUDESONIDE NEBS 0.5 MG/2 ML INH NEB SCH ×3 (01:57→20:48)
[2020-11-21] MEDS: ALBUTEROL SULFATE 2.5 MG/3 ML VIAL NEB SCH ×5 (01:57→20:48)
[2020-11-21] MEDS: VANCOMYCIN HCL INJ 1,000 MG, VANCOMYCIN HCL INJ 500 MG in SODIUM CHLORIDE 0.9% 250ML 25... IVPB SCH (04:11)
[2020-11-21] MEDS: PANTOPRAZOLE SODIUM TAB 40 MG PO SCH (06:53)
[2020-11-21] MEDS: LEVOTHYROXINE SODIUM 0.1 MG TAB PO SCH (06:53)
[2020-11-21] MEDS: BREO ELLIPTA INH SCH (09:15)
[2020-11-21] MEDS: ACETAMINOPHEN 500 MG TAB PO SCH ×3 (09:18→20:57)
[2020-11-21] MEDS: CARVEDILOL 12.5 MG TAB PO SCH ×2 (09:18→20:58)
[2020-11-21] MEDS: DULoxetine HCL 30 MG CAP PO SCH (09:18)
[2020-11-21] MEDS: LOSARTAN POTASSIUM 25 MG TAB PO SCH (09:18)
[2020-11-21] MEDS: PREGABALIN 25 MG CAP PO SCH ×2 (09:18→20:58)
[2020-11-21] MEDS: CETIRIZINE HCL 10 MG TAB PO SCH (09:18)
[2020-11-21] MEDS: FERROUS SULFATE 325 MG TAB PO SCH (09:18)
[2020-11-21] MEDS: BIFIDOBACTERIUM INFANTIS 4 MG CAP PO SCH (09:18)
[2020-11-21] MEDS: CALCITRIOL 0.25 MCG CAP PO SCH (09:18)
[2020-11-21] MEDS ORDERED: WARFARIN SODIUM PO ONE ×2 (09:26)
[2020-11-21] MEDS ORDERED: ENOXAPARIN SODIUM 30 MG/0.3 ML SYG SUBCU ONE (09:30)
--- NOTE | 2020-11-21 10:45 | PN ---
SUPERVISING PHYSICIAN: Justo Reed M.D. DATE: 11/19/20 SUBJECTIVE: The patient is lying in bed. She still complains of extreme weakness and her lower extremities hurting. Otherwise she has no complaints. OBJECTIVE: VITAL SIGNS: Temperature 97.9, heart rate 81, blood pressure 131/74, respiratory rate 16, O2 saturation 96% on 2 liters nasal cannula. RESPIRATORY: Essentially clear to auscultation bilaterally. Diminished at the bases. CARDIAC: Regular rate and rhythm. EXTREMITIES: Bilateral lower extremities are wrapped and she does have pedal pulses that are palpable at +1 bilaterally. Both lower extremities are edematous but have improved since yesterday. LABORATORY: WBCs are 4.2 with hemoglobin 9.6, hematocrit 29.5. INR is 1.57. Sodium 146, potassium 4.3, chloride 113, BUN 64, creatinine 1.8, calcium 8.6, magnesium 2.1. Preliminary blood cultures show no growth after 3 days. Wound culture is pending. ASSESSMENT: 1. Acute renal failure likely secondary to prerenal azotemia from dehydration secondary to Lasix and exacerbated by Bactrim treatment for lower extremity cellulitis. 2. Upper viral respiratory infection due to enterovirus, but negative for COVID. 3. Congestive heart failure of unknown etiology. She did have an elevated BNP on admission as well worsening bilateral lower extremity edema. 4. Chronic venous stasis ulcer due to venous insufficiency. 5. Cellulitis of the bilateral lower extremities, culture results pending. 6. Chronic atrial fibrillation on Coumadin therapy. 7. Hypertension with associated pulmonary hypertension. 8. History of tricuspid regurgitation. 9. Obesity with body mass index of 47. PLAN: We will continue present supportive care, including antibiotic coverage. Monitor her cultures as they become available. I will give her 7 mg of Coumadin today and recheck her PT in the morning as well as her other labs. Hopefully she can be discharged in the next day or two with continued antibiotic coverage at discharge. Will follow and treat as needed. [facility][id number] [facility]
[2020-11-21] MEDS ORDERED: WARFARIN SODIUM 3 MG TAB ONE (12:48)
[2020-11-21] MEDS ORDERED: WARFARIN SODIUM 5 MG TAB ONE (12:49)
[2020-11-21] MEDS: DOXYCYCLINE HYCLATE CAP 100 MG CAP PO SCH ×2 (13:35→20:59)
[2020-11-21] MEDS: traMADol HCL 50 MG TAB PO SCH (20:56)
[2020-11-21] MEDS: traZODone HCL 50 MG TAB PO SCH (20:58)
[2020-11-21] MEDS: diphenhydrAMINE HCL 25 MG CAP PO SCH (20:58)
[2020-11-22] MEDS: PANTOPRAZOLE SODIUM TAB 40 MG PO SCH (06:28)
[2020-11-22] MEDS: LEVOTHYROXINE SODIUM 0.1 MG TAB PO SCH (06:28)
[2020-11-22] MEDS: CALCITRIOL 0.25 MCG CAP PO SCH (08:59)
[2020-11-22] MEDS: CETIRIZINE HCL 10 MG TAB PO SCH (08:59)
[2020-11-22] MEDS: DULoxetine HCL 30 MG CAP PO SCH (08:59)
[2020-11-22] MEDS: ALBUTEROL SULFATE 2.5 MG/3 ML VIAL NEB SCH ×4 (09:00→21:13)
[2020-11-22] MEDS: BUDESONIDE NEBS 0.5 MG/2 ML INH NEB SCH ×2 (09:00→21:13)
[2020-11-22] MEDS: BREO ELLIPTA INH SCH (09:00)
[2020-11-22] MEDS: ACETAMINOPHEN 500 MG TAB PO SCH ×3 (09:01→21:04)
[2020-11-22] MEDS: FERROUS SULFATE 325 MG TAB PO SCH (09:02)
[2020-11-22] MEDS: LOSARTAN POTASSIUM 25 MG TAB PO SCH (09:02)
[2020-11-22] MEDS: PREGABALIN 25 MG CAP PO SCH ×2 (09:02→21:03)
[2020-11-22] MEDS: BIFIDOBACTERIUM INFANTIS 4 MG CAP PO SCH (09:02)
[2020-11-22] MEDS: CARVEDILOL 12.5 MG TAB PO SCH ×2 (09:02→21:03)
[2020-11-22] MEDS: DOXYCYCLINE HYCLATE CAP 100 MG CAP PO SCH ×2 (09:06→21:04)
[2020-11-22] MEDS ORDERED: DOXYCYCLINE HYCLATE CAP 100 MG CAP ONE ×2 (09:06→20:19)
--- NOTE | 2020-11-22 10:45 | PN ---
SUPERVISING PHYSICIAN: Justo Reed M.D. DATE: 11/20/20 SUBJECTIVE: The patient is lying in bed asleep. She awakens easily. She continues complaints of lower extremity pain and just generalized weakness. We discussed her discharge planning, including having home health. Denies chest pain or shortness, nausea or vomiting. OBJECTIVE: VITAL SIGNS: Temperature 98.4, heart rate 86, blood pressure 151/100, respiratory rate 18, O2 saturation 93% on 2 liters nasal cannula. RESPIRATORY: Diminished breath sounds throughout. CARDIAC: Regular rate and rhythm. NEUROLOGIC: She is awake, alert and oriented times three. EXTREMITIES: Bilateral lower extremities show pedal pulses are palpable at +2. There is generalized edema to her bilateral lower extremities. LABORATORY: WBCs are 4.8, hemoglobin 9.7, hematocrit 30.1. INR is 1.38. Sodium 148, potassium 4.7, chloride 115, BUN 50, creatinine 1.51. Serum osmolality 308.5. Wound cultures are pending. Preliminary blood cultures show no growth after 4 days. All other labs and films have been reviewed via the EMR. ASSESSMENT: 1. Acute renal failure likely secondary to prerenal azotemia from dehydration secondary to Lasix and exacerbated by Bactrim treatment for lower extremity cellulitis. 2. Upper viral respiratory infection due to enterovirus, but negative for COVID. 3. Congestive heart failure of unknown etiology. She did have an elevated BNP on admission as well worsening bilateral lower extremity edema. 4. Chronic venous stasis ulcer due to venous insufficiency. 5. Cellulitis of the bilateral lower extremities, culture results pending. 6. Chronic atrial fibrillation on Coumadin therapy. 7. Hypertension with associated pulmonary hypertension. 8. History of tricuspid regurgitation. 9. Obesity with body mass index of 47. PLAN: We will continue present supportive care. I am awaiting wound culture sensitivity to guide her antibiotic treatment. I will check her INR tomorrow and give her 7.5 mg of Coumadin today. I have also ordered Physical Therapy for evaluation tomorrow to assist with discharge planning and to make sure she is safe to go home. I do know that she will most likely need to go home with home health physical therapy. We will follow and treat as needed. [facility][id number] [facility]
--- NOTE | 2020-11-22 10:51 | PN ---
SUPERVISING PHYSICIAN: Justo Reed M.D. DATE: 11/21/19 SUBJECTIVE: The patient is sitting on the side of her bed. She continues complaints of her lower extremity pain. Physical therapy reports that she is safe to go home as long as she has physical therapy as well as home health. She denies any chest pain, shortness of breath, nausea or vomiting. OBJECTIVE: VITAL SIGNS: Temperature 98.1, heart rate 90, blood pressure 136/79, respiratory rate 22, O2 saturation 97% on 1 liter nasal cannula. RESPIRATORY: Diminished at the bases. CARDIAC: Regular rate and rhythm. ABDOMEN: Soft, nondistended, non-tender. Bowel sounds positive. NEUROLOGIC: She is awake and alert. LABORATORY: WBCs are 5,900 with hemoglobin 10, hematocrit 31.1. INR is 1.45. Electrolytes are basically within normal limits. BUN 46, creatinine 1.48. Wound cultures have resulted and are positive for streptococcus agalactiae and Enterobacter cloaca. They are pansensitive. Her final blood culture showed no growth after 5 days. All other labs and films have been reviewed via the EMR. ASSESSMENT: 1. Acute renal failure likely secondary to prerenal azotemia from dehydration secondary to Lasix and exacerbated by Bactrim treatment for lower extremity cellulitis. 2. Upper viral respiratory infection due to enterovirus, but negative for COVID. 3. Congestive heart failure of unknown etiology. She did have an elevated BNP on admission as well worsening bilateral lower extremity edema. 4. Chronic venous stasis ulcer due to venous insufficiency. 5. Cellulitis of the bilateral lower extremities, culture results are Enterobacter and streptococcus. 6. Chronic atrial fibrillation on Coumadin therapy. 7. Hypertension with associated pulmonary hypertension. 8. History of tricuspid regurgitation. 9. Obesity with body mass index of 47. PLAN: We will continue present supportive care and plan for discharge tomorrow. She will need home health with physical therapy. I have discontinued her vancomycin and Rocephin and I have changed her to doxycycline and she will need to go home with that prescription of doxycycline. I have encouraged her to keep her legs elevated. I have also checked her INR and lab for in the morning. I have given her her routine dosing of Coumadin as well as a one-time dose of Levaquin. We will continue to monitor closely and follow as needed #[id number] MTDD
[2020-11-22] MEDS ORDERED: NYSTATIN POWDER 15GM BTTL TOP ONE (11:43)
[2020-11-22] MEDS: FUROSEMIDE 40 MG TAB PO SCH (15:03)
[2020-11-22] MEDS: SPIRONOLACTONE 25 MG TAB PO SCH (15:03)
--- NOTE | 2020-11-22 19:44 | PN ---
SUPERVISING PHYSICIAN: Justo Reed M.D. DATE: 11/22/20 SUBJECTIVE: The patient is sitting on the edge of the bed, seems to be improved from the last time I saw her. She had not really had any complaints. I did discuss with her we are going to start her back on her Lasix and Spironolactone today. I anticipate hopefully we will be able to get her home tomorrow with some home health. She has not had any chest pain, shortness of breath, nausea, vomiting or diarrhea. OBJECTIVE: VITAL SIGNS: Temperature 97.6, pulse 92, blood pressure 137/86, satting 94% on nasal cannula at rest at 1 liter. GENERAL The patient looks to be resting comfortably. She does not appear to be in any distress, sitting on the edge of the bed. CHEST: Lung sounds are diminished but no obvious rales or rhonchi. HEART: Slightly irregular rate and rhythm. ABDOMEN: Obese but soft, non-tender. Positive bowel sounds. NEUROLOGIC: She is alert and oriented times three. EXTREMITIES: Showing again bilateral lower extremities with chronic pedal edema at 3+ with bandages in place bilaterally for stasis ulcers. LABORATORY: Labs are showing to be stable. Will follow as needed, anticipating discharging tomorrow. MICROBIOLOGY: There is a wound culture pending from the left leg but final cultures did show an Enterobacter cloacae that was sensitive to Gentamicin, Tetracycline, Tobramycin, Bactrim and Zosyn as well as Meropenem. Final culture showed a Staphylococcus agalactiae. Blood cultures show no growth after 5 days. RADIOLOGY: No additional radiographic studies today. ASSESSMENT: 1. Chronic renal failure due to some mild dehydration and Bactrim showing improvement and returning to baseline levels. 2. Upper respiratory infection due to enterovirus with symptoms resolving. 3. Congestive heart failure with a grade 2 diastolic dysfunction with echocardiogram showing an ejection fraction of approximately 55% with final report pending. 4. Chronic venous stasis ulcers due to venous insufficiency. 5. Cellulitis of the lower extremities with cultures showing and Enterococcus cloacae. The patient was started on doxycycline. 6. Chronic atrial fibrillation on Coumadin with controlled ventricular rate. 7. Hypertension with associated pulmonary hypertension. 8. History of tricuspid regurgitation. 9. Obesity with body mass index of 47. PLAN: I will talk to Infectious Disease, Dr. Persaud, tomorrow and run a report by her and see what she suggests as far as going home on on medication. She has been started on doxycycline. This may be adequate coverage given that her renal function significantly decreased with elevated creatinine when she was on Bactrim. Will further discuss her final regimen on discharge. She will need home health along with physical therapy at home, but I think she will be able to discharge safely home with reevaluation with Physical Therapy tomorrow with that pending. Until then, will continue to monitor and treat as needed. [facility][id number] [facility]
[2020-11-22] MEDS: NYSTATIN POWDER 15GM BTTL TOP SCH ×2 (20:05→21:05)
[2020-11-22] MEDS: diphenhydrAMINE HCL 25 MG CAP PO SCH (21:03)
[2020-11-22] MEDS: IV SET AND CAP CHANGE INJ INJ SCH (21:03)
[2020-11-22] MEDS: traMADol HCL 50 MG TAB PO SCH (21:04)
[2020-11-22] MEDS: traZODone HCL 50 MG TAB PO SCH (21:05)
[2020-11-23] MEDS: FUROSEMIDE 40 MG TAB PO SCH (06:33)
[2020-11-23] MEDS: LEVOTHYROXINE SODIUM 0.1 MG TAB PO SCH (06:33)
[2020-11-23] MEDS: PANTOPRAZOLE SODIUM TAB 40 MG PO SCH (06:33)
[2020-11-23] MEDS: CALCITRIOL 0.25 MCG CAP PO SCH (09:15)
[2020-11-23] MEDS: LOSARTAN POTASSIUM 25 MG TAB PO SCH (09:15)
[2020-11-23] MEDS: FERROUS SULFATE 325 MG TAB PO SCH (09:15)
[2020-11-23] MEDS: PREGABALIN 25 MG CAP PO SCH (09:15)
[2020-11-23] MEDS: DULoxetine HCL 30 MG CAP PO SCH (09:15)
[2020-11-23] MEDS: CARVEDILOL 12.5 MG TAB PO SCH (09:15)
[2020-11-23] MEDS: BIFIDOBACTERIUM INFANTIS 4 MG CAP PO SCH (09:15)
[2020-11-23] MEDS: CETIRIZINE HCL 10 MG TAB PO SCH (09:15)
[2020-11-23] MEDS: ACETAMINOPHEN 500 MG TAB PO SCH (09:16)
[2020-11-23] MEDS: NYSTATIN POWDER 15GM BTTL TOP SCH (09:17)
[2020-11-23] MEDS ORDERED: DOXYCYCLINE HYCLATE CAP 100 MG CAP ONE (09:20)
[2020-11-23] MEDS ORDERED: SPIRONOLACTONE 25 MG TAB ONE (09:20)
[2020-11-23] MEDS: DOXYCYCLINE HYCLATE CAP 100 MG CAP PO SCH (09:21)
[2020-11-23] MEDS: SPIRONOLACTONE 25 MG TAB PO SCH (09:21)
[2020-11-23] MEDS ORDERED: traMADol HCL 50 MG TAB ONE (09:45)
[2020-11-23] MEDS: BREO ELLIPTA INH SCH (10:48)
[2020-11-23] MEDS: BUDESONIDE NEBS 0.5 MG/2 ML INH NEB SCH (10:48)
[2020-11-23] MEDS: ALBUTEROL SULFATE 2.5 MG/3 ML VIAL NEB SCH ×2 (10:48→13:00)
[2020-11-23 11:23] VITALS: O2SAT 95
[2020-11-23 12:17] VITALS: BP 137/82; TEMP 97.8
--- NOTE | 2020-11-25 09:30 | DS ---
SUPERVISING PHYSICIAN: Fuad Chacko MD ADMISSION DIAGNOSIS: 1. Acute renal failure likely secondary to prerenal azotemia from dehydration from Lasix and exacerbated by recent Bactrim for treatment of lower extremity cellulitis. 2. Upper viral respiratory infection due to enterovirus, but negative for COVID. 3. Congestive heart failure, etiology uncertain with no echocardiogram available at time of admission with echocardiogram pending with the patient having elevated BNP on admission and bilateral lower extremity edema. 4. History of chronic venous stasis ulcers due to venous insufficiency with recent treatment with Bactrim for cellulitis. 5. Supratherapeutic INR with the patient on chronic Coumadin therapy with no signs of acute bleeding. 6. Chronic atrial fibrillation with a controlled ventricular rate with paced rhythm with the patient on chronic Coumadin therapy. 7. History of hypertension with associated pulmonary hypertension, followed by Dr. Rodriguez. 8. History of tricuspid regurgitation. 9. Obesity with body mass index of 47. DISCHARGE DIAGNOSIS: 1. Chronic renal failure due to some mild dehydration and Bactrim showing improvement and returning to baseline levels. 2. Upper respiratory infection due to enterovirus with symptoms resolving. 3. Congestive heart failure with a grade 2 diastolic dysfunction with echocardiogram showing an ejection fraction of approximately 55% with final report pending. 4. Chronic venous stasis ulcers due to venous insufficiency. 5. Cellulitis of the lower extremities with cultures showing and Enterococcus cloacae. The patient was started on doxycycline. 6. Chronic atrial fibrillation on Coumadin with controlled ventricular rate. 7. Hypertension with associated pulmonary hypertension. 8. History of tricuspid regurgitation. 9. Obesity with body mass index of 47. REASON FOR HOSPITALIZATION: Ms. Lakhani is a 70-year-old female patient that has a history of congestive heart failure, obesity, chronic stasis ulcers to lower extremities, chronic obstructive pulmonary disease, hypertension with pulmonary hypertension, chronic atrial fibrillation. She presents to the Emergency Room today complaining of increasing fatigue over the last three days. She was treated for some mild cellulitis and worsening of her stasis ulcers due to venous insufficiency to the lower extremities with Bactrim over the last five days. She endorses that her left lower leg on the lateral aspect has been having some areas concerning for infection and that was what she was treated for, receiving wound care. She denied any fevers, chills or significant coughing. Her vital signs in the Emergency Room showed she was afebrile with temperature 98.6, saturation 98% on room air with blood pressure 111/84. Lab studies showed white count 5,700 without a left shift. Coagulation studies showed her D-dimer was normal, but INR was 8.74 and she is on chronic Coumadin therapy. Chemistries showed her creatinine was 3.92, which is elevated for her. Looking at her baseline levels, it appears that she runs around 1.8. She does take quite a few diuretics in the form of Lasix and spironolactone which she has been taking as directed in efforts to decrease the edema to her lower extremities. Her anion gap was elevated at 19.4. CO2 was normal at 22. Lactic acid was normal. C-reactive protein was elevated at 3.5. BNP was elevated at 459. Respiratory panel showed she was positive for human rhinovirus/enterovirus, but negative for COVID and influenza and all other bacterial and viral targets. Blood cultures were completed. A chest x-ray showed cardiomegaly with pulmonary vascular congestion. CT of her head without contrast showed no acute intracranial abnormalities. There was note of chronic lacunar infarction versus prominent perivascular spaces in inferior basal ganglia bilaterally with some mild maxillary and bilateral ethmoid sinus disease. Given her acute renal failure which probably is due to dehydration from diuretics exacerbated by her recent antibiotic usage of Bactrim, she is going to be admitted for further treatment and evaluation. Her INR was supratherapeutic, but she had no areas for concern for acute loss or any abnormal bleeding. She was in stable condition at time of admission. LABORATORY: White count on discharge was 5,900, hemoglobin 10, hematocrit 31.0. Differential without a left shift. Platelet count 164,000. INR on discharge was 2.64. Chemistries showed normal electrolytes. Creatinine was down to 1.48. Liver functions were all within normal limits. Urinalysis was unremarkable. MICROBIOLOGY: Blood cultures were negative after 5 days. Wound cultures to the left lower leg showed a Enterobacter cloacae that was sensitive to tetracycline and tobramycin, gentamicin, meropenem, Bactrim and Zosyn. RADIOLOGY: Chest x-ray on admission per radiologic interpretation showed cardiomegaly with pulmonary vascular congestion. Repeat chest x-ray on 11/17/20 showed cardiomegaly with vascular congestion having improved. She had Doppler studies of both legs with no findings of acute DVT. Echocardiogram on admission showed grade 2 diastolic dysfunction with ejection fraction 55% with final report still pending at discharge. HOSPITAL COURSE: Ms. Lakhani was admitted as noted in the reason for hospitalization for both upper respiratory viral infection, lower extremity edema associated with some venous stasis which is chronic along with acute renal failure that was felt to be due to dehydration and Bactrim. She was given fluids slowly over the duration of her hospitalization. She did show improvement in her creatinine. She was started on antibiotic coverage with vancomycin initially for the lower extremity venous stasis ulcers. After cultures came back, she was started on doxycycline. She was showing good response to treatment. She had a physical therapy evaluation prior to discharge which found the patient was safe to discharge home without any further assistance. It was felt she had clinically improved well enough to continue with outpatient management. Therefore, she was discharged home. PLAN: Ms. Lakhani was discharged home on 11/23/20 with instructions to followup with Dr. Walter. She is to call his office for a followup appointment within the next 7 days or sooner as needed. She was to resume her medications as instructed and was given instructions to return to the Emergency Room should she have any concerning symptoms. She was continued on antibiotic coverage with Vibramycin 100 mg twice daily for 14 days and encouraged to take a probiotic of her choice, but given a prescription for 4 mg of Align to take daily while on antibiotics. All other medications prior to hospitalization were continued as is. CONDITION ON DISCHARGE: Stable and improving. DISPOSITION: The patient was discharged home. #[id number] MTDD
== END 2020-11-23 14:15 | disposition home health service (06) | DRG 683 ==
LOC: ER 14:30 → OBSVTOIN 18:27 → MS 18:27
PROVIDERS: ADMIT Nurse Practitioner Family; ATTEND Nurse Practitioner Family
DX: N17.9 Acute kidney failure, unspecified (principal); I13.0 Hypertensive heart and chronic kidney disease with heart failure and stage 1 through stage 4 chronic kidney disease, or unspecified chronic kidney disease; I48.20 Chronic atrial fibrillation, unspecified; Z68.42 Body mass index [BMI] 45.0-49.9, adult; L97.929 Non-pressure chronic ulcer of unspecified part of left lower leg with unspecified severity; L97.919 Non-pressure chronic ulcer of unspecified part of right lower leg with unspecified severity; L03.114 Cellulitis of left upper limb; L03.115 Cellulitis of right lower limb; N18.4 Chronic kidney disease, stage 4 (severe); B34.8 Other viral infections of unspecified site; J32.0 Chronic maxillary sinusitis; J44.9 Chronic obstructive pulmonary disease, unspecified; I07.1 Rheumatic tricuspid insufficiency; E86.0 Dehydration; I87.2 Venous insufficiency (chronic) (peripheral); I27.20 Pulmonary hypertension, unspecified; Z20.822 Contact with and (suspected) exposure to COVID-19; E66.01 Morbid (severe) obesity due to excess calories; Z95.0 Presence of cardiac pacemaker; Z79.01 Long term (current) use of anticoagulants; Z88.5 Allergy status to narcotic agent

== ENCOUNTER → 2020-12-05 | Outpatient (CLI) | payer MEDICARE, OTHER | LOC: BFHH 10:55 | PROVIDERS: ATTEND General Practice | DX: N19 Unspecified kidney failure (principal); E03.8 Other specified hypothyroidism; I87.2 Venous insufficiency (chronic) (peripheral); L03.119 Cellulitis of unspecified part of limb; B34.8 Other viral infections of unspecified site ==

== ENCOUNTER → 2020-12-29 | Outpatient (CLI) | payer MEDICARE, OTHER | LOC: BFHH 15:10 | PROVIDERS: ATTEND General Practice | DX: Z79.01 Long term (current) use of anticoagulants (principal) ==